=== PATIENT | female | born 1965 | race Caucasian/White ===

== ENCOUNTER → 2020-04-18 12:47 | Outpatient (BNVA) | payer MEDICAID, SELFPAY | PROVIDERS: PCP Family Medicine; Visit Provider Physician Assistant | DX: Z76.89 Persons encountering health services in other specified circumstances (principal) ==

== ENCOUNTER → 2020-07-29 13:50 | Outpatient (BNVA) | payer MEDICAID, SELFPAY | PROVIDERS: PCP Internal Medicine; Visit Provider Nurse Practitioner Family | DX: Z76.89 Persons encountering health services in other specified circumstances (principal) ==

== ENCOUNTER → 2020-09-23 13:20 | Outpatient (REF) | payer MEDICAID, SELFPAY ==
[2020-09-23 14:00] LABS: Hemoglobin 11.7 g/dl (12.0-16.0); Mean Corpuscular HGB Conc 32.5 g/dl (31.0-35.0); Mean Corpuscular Hemoglobin 27.8 pg (27.0-33.0); Mean Corpuscular Volume 85.5 fL (80-98); Mean Platelet Volume 10.6 fL (9.4-12.3); Platelet Count 355 X10*3/uL (160-400); Red Blood Count 4.21 X10*6/uL (4.20-5.50); Red Cell Distribution Width 13.3 % (11.0-16.0)
--- NOTE | 2020-09-23 14:00 | ECG_ITS ---
Hook-up date: 2020-09-23 13:46:00 Duration: 47:59:00 Test Indications: PALPITATIONS Medications: [id number] QRS complexes 38 Ventricular ectopics which represent <1 % of total QRS comp. 205 Supraventricular ectopics which represent <1 % of total QRS comp. * Paced QRS complexs which represent % of total QRS comp. VENTRICULAR ECTOPY 38 Isolated 0 Bigeminal Cycles 0 Couplets 0 Runs 0 Beats in Runs * Beats LONGEST at * BPM at :: -- * Beats FASTEST at * BPM at :: -- SUPRAVENTRICULAR ECTOPY 203 Isolated 1 Couplets 0 Runs 0 Beats in Runs * Beats LONGEST at * BPM at :: -- * Beats FASTEST at * BPM at :: -- HEART RATES 57 MIN at 03:18:54 2020-09-24 89 AVG 148 MAX at 07:05:36 2020-09-24 LONGEST RR 1.1040 secs at 23:08:19 2020-09-24 S-T LEVELS Channel 1 - 128 mm at 13:46:00 2020-09-23 - 128 mm at 13:46:00 2020-09-23 Channel 2 - 128 mm at 13:46:00 2020-09-23 - 128 mm at 13:46:00 2020-09-23 Channel 3 - 128 mm at 03:30:51 -- - 128 mm at 03:30:51 Underlying rhythm is sinus; Rare supraventricular ectopy; No sustained arrhythmias Patient did not report any symptoms in the diary Referred By: Angelo Ahumada Overread By: MORGAN HENRY
[2020-09-23 14:54] LABS: Alanine Aminotransferase 12 U/L (0-31); Albumin Level 4.3 g/dL (3.5-5.0); Alkaline Phosphatase 73 U/L (39-117); Anion Gap 13 (12-20); Aspartate Amino Transferase 18 U/L (5-31); Bilirubin Total 0.2 mg/dL (0.0-1.0); Blood Urea Nitrogen 6 mg/dL (9-16); Calcium 9.4 mg/dL (8.4-10.2); Carbon Dioxide 27 mmol/L (22-29); Chloride 104 mmol/L (96-108); Estimated Glomerular Filt Rate > 60; Glucose Random 74 mg/dL (60-115); Sodium 140 mmol/L (135-145); Total Protein 7.6 g/dL (6.5-8.0)
== END ==
LOC: HO.CARD 13:20
PROVIDERS: Nurse Practitioner Family; Visit Provider Internal Medicine
DX: Z12.11 Encounter for screening for malignant neoplasm of colon (principal); R00.2 Palpitations
CPT/HCPCS: 36415; 80053; 85027; 93225; 93226

== ENCOUNTER 2020-09-29 06:41 | Day surgery (SDC) | payer MEDICAID, SELFPAY ==
--- NOTE | 2020-09-26 09:53 | P.CONAN_ITS ---
Documented by User: Jovanna Vasquez 09/26/20 09:54 HPI - Anesthesia Eval Consult details Narrative: 54yo F for Upper Endoscopy and Colonoscopy [facility] Active Problems Active Problems: All Active Problems (Updated 09/23/20 @ 11:37 by Khalida Bond) History of carpal tunnel release (Acute) Carpal tunnel syndrome on left (Acute) Past Medical History Medical History Anxiety and depression Asthma Back pain Elevated cholesterol GERD (gastroesophageal reflux disease) History of vertigo Palpitations Family History Family History Father No problems noted. Mother No problems noted. Surgical History Surgical History History of appendectomy History of carpal tunnel release History of carpal tunnel surgery of right wrist History of esophagogastroduodenoscopy (EGD) History of throat surgery Social History Social History Alcohol intake: current Alcohol intake frequency: does not drink Smoking Status: Current every day smoker Tobacco Type: Cigarette Cigarettes Per Day: 4 Use of substances other than those prescribed or required for medical reasons: Yes Advance Directives: No Advance Directives Information Provided: Yes Meds Allergies Allergy/AdvReac Type Severity Reaction Status Date / Time Penicillins Allergy Intermediate RASH Verified 09/29/20 07:35 Home Medications Medication Instructions Recorded Confirmed Last Taken Type albuterol sulfate 90 mcg/actuation 2 puff INHALATION Q6H PRN 04/14/20 09/23/20 Unknown History aerosol inhaler cholecalciferol (vitamin D3) 25 25 mcg PO DAILY 04/14/20 09/23/20 Unknown History mcg (1,000 unit) capsule fluoxetine 20 mg capsule 20 mg PO DAILY 04/14/20 09/23/20 Unknown History hydroxyzine HCl 25 mg tablet 25 mg PO BID PRN 04/14/20 09/23/20 Unknown History meclizine 25 mg tablet 25 mg PO DAILY 04/14/20 09/23/20 Unknown History ranitidine HCl 150 mg capsule mg PO 04/14/20 Unknown History benztropine 1 tab PO BEDTIME 09/23/20 09/23/20 Unknown History cyanocobalamin (vitamin B-12) 1 ml IM QMONTH 09/23/20 09/23/20 Unknown History duloxetine [Cymbalta] 1 cap PO QAM 09/23/20 09/23/20 Unknown History fluticasone propionate 1 - 2 spray INTRANASAL DAILY PRN 09/23/20 09/23/20 Unknown History ibuprofen 1 tab PO TID PRN 09/23/20 09/23/20 09/22/20 14:00 History loratadine 1 tab PO DAILY PRN 09/23/20 09/23/20 Unknown History mirtazapine 1 tab PO BEDTIME 09/23/20 09/23/20 Unknown History pantoprazole 1 tab PO DAILY 09/23/20 09/23/20 Unknown History ziprasidone HCl [Geodon] 2 cap PO BEDTIME 09/23/20 09/23/20 Unknown History Exam Exam Date and Time: September 26, 2020 6401 Pertinent Lab Results Pertinent Lab Results: Laboratory Tests 09/23/20 09/23/20 13:20 13:20 WBC 10.0 Hgb 11.7 L Hct 36.0 L Plt Count 355 Sodium 140 Potassium 4.0 Chloride 104 Carbon Dioxide 27 BUN 6 L Creatinine 0.75 Assessment and Plan Assessment Anesthesia Assessment: Chart Reviewed Documented by User: Kimber Burks 09/29/20 07:50 [facility] Past Medical History Medical History Anxiety and depression Asthma Back pain Elevated cholesterol GERD (gastroesophageal reflux disease) History of vertigo Palpitations Family History Family History Father No problems noted. Mother No problems noted. Surgical History Surgical History History of appendectomy History of carpal tunnel release History of carpal tunnel surgery of right wrist History of esophagogastroduodenoscopy (EGD) History of throat surgery Social History Social History Alcohol intake: current Alcohol intake frequency: does not drink Smoking Status: Current every day smoker Tobacco Type: Cigarette Cigarettes Per Day: 4 Use of substances other than those prescribed or required for medical reasons: Yes Advance Directives: No Advance Directives Information Provided: Yes Meds Allergies Allergy/AdvReac Type Severity Reaction Status Date / Time Penicillins Allergy Intermediate RASH Verified 09/29/20 07:35 Home Medications Medication Instructions Recorded Confirmed Last Taken Type albuterol sulfate 90 mcg/actuation 2 puff INHALATION Q6H PRN 04/14/20 09/23/20 Unknown History aerosol inhaler cholecalciferol (vitamin D3) 25 25 mcg PO DAILY 04/14/20 09/23/20 Unknown History mcg (1,000 unit) capsule fluoxetine 20 mg capsule 20 mg PO DAILY 04/14/20 09/23/20 Unknown History hydroxyzine HCl 25 mg tablet 25 mg PO BID PRN 04/14/20 09/23/20 Unknown History meclizine 25 mg tablet 25 mg PO DAILY 04/14/20 09/23/20 Unknown History ranitidine HCl 150 mg capsule mg PO 04/14/20 Unknown History benztropine 1 tab PO BEDTIME 09/23/20 09/23/20 Unknown History cyanocobalamin (vitamin B-12) 1 ml IM QMONTH 09/23/20 09/23/20 Unknown History duloxetine [Cymbalta] 1 cap PO QAM 09/23/20 09/23/20 Unknown History fluticasone propionate 1 - 2 spray INTRANASAL DAILY PRN 09/23/20 09/23/20 Unknown History ibuprofen 1 tab PO TID PRN 09/23/20 09/23/20 09/22/20 14:00 History loratadine 1 tab PO DAILY PRN 09/23/20 09/23/20 Unknown History mirtazapine 1 tab PO BEDTIME 09/23/20 09/23/20 Unknown History pantoprazole 1 tab PO DAILY 09/23/20 09/23/20 Unknown History ziprasidone HCl [Geodon] 2 cap PO BEDTIME 09/23/20 09/23/20 Unknown History Exam Airway Mallampati Class: II TM Dist: >3cm Neck ROM: Full Heart: RRR Lungs: CTA
--- NOTE | 2020-09-29 07:35 | MHC.SHP ---
Pre-Procedural Eval Section B Chief Complaint: screening Details of Present Illness: also uncontrolled GERD so doing EGD as well Relevant Family History (Specify if Yes): No Relevant Social History: Tobacco Use Present Medications: see Short Stay Collaborative assessment Medical History: Significant History (Anxiety and depression Asthma Back pain Elevated cholesterol GERD (gastroesophageal reflux disease) History of vertigo Palpitations) History of Previous Operations: Relevant previous surgery/procedure and date(s) (History of appendectomy History of carpal tunnel release History of carpal tunnel surgery of right wrist History of esophagogastroduodenoscopy (EGD) History of throat surgery) Allergies: Allergies Allergy/AdvReac Type Severity Reaction Status Date / Time Penicillins Allergy Intermediate RASH Verified 07/29/20 13:51 Review of Systems Sugical H&P ROS: Negative: Constitution, Cardiovascular, Respiratory, Neurological, Psychiatric, Hem-Onc, Allergic/Immunologic, Gastrointestinal, Genitourinary, Musculoskeletal, Integumentary, Endocrine and Eyes/Ears/Nose/Throat Exam Surgical H&P Exam: Normal: HEENT, Normal: Heart, Normal: Lungs, Normal: Extremities, Normal: Abdomen, Normal: Skin and Normal: Neurological Plan Diagnosis/Plan: Unchanged I have reviewed the history and physical and performed a pertinent physical examination on my patient. No changes have occurred unless specified. EGD and colonoscopy
[2020-09-29 07:36] VITALS: BMI 27.4
[2020-09-29 07:40] VITALS: BP 139/85; PULSE 85; RESP 18; TEMP 36.7; O2SAT 96
[2020-09-29] MEDS: Lactated Ringers 1,000 ML 100 ML IVCONT (07:51)
--- NOTE | 2020-09-29 08:32 | PM.OP ---
Brief Operative Note Date of Service: 09/29/20 Pre-op diagnosis: GERD and colon screening Post-op diagnosis: same Procedure: see op note Surgeon: Reinaldo Baez MD Anesthesia: MAC Estimated blood loss (mL): 0 Condition: stable Disposition: PACU
--- NOTE | 2020-09-29 08:32 | W.PM.OPN ---
Operative Note Operative Note Date of Service: 09/29/20 Narrative: Operative Information Procedure Description: EGD, Colonoscopy FLEXIBLE TRANSORAL UPPER GASTROINTESTINAL ENDOSCOPY AND COLONOSCOPY PROCEDURE NOTE UPPER ENDOSCOPY Consent: Indications for the procedure and potential complications of bleeding, perforation, reaction to medications and missed diagnosis were discussed with the patient and informed consent was obtained. Instrument: Olympus GIF H 190 J mid size upper endoscope Monitoring: Vital signs and clinical assessment, continuous EKG monitoring, Pulse oximetry, Carbon Dioxide monitoring and blood pressure monitoring were done throughout the procedure. Procedure: The patient was placed in the left lateral decubitis position and pre-procedure medications were administered and a bite block was placed. The endoscope was inserted into the mouth and advanced under direct vision to the third part of duodenum. A careful inspection was made as the upper endoscope was withdrawn including a retroflexed examination of the proximal stomach; Findings and interventions are described below. Findings: Larynx:normal Esophagus: GE junction at 36 cm, diaphragm hiatus at 36 cm, LA grade A esophagitis with suspected short segment Barretts tongue seen, bx taken Stomach: Patchy erythematous mucosa. Biopsies were obtained. Grade 2 flap valve on retroflexed examination of the cardia. Gastric motility seemed reduced Duodenum: Normal bulb and descending duodenum, Intervention: Biopsies as noted above COLONOSCOPY Instrument: Olympus variable stiffness pediatric scope 190L Colonoscopy Monitoring: Vital signs and clinical assessment, continuous EKG monitoring, Pulse oximetry, Carbon Dioxide monitoring and blood pressure monitoring were done throughout the procedure. Colon withdrawal time was 11 minutes. Procedure: The patient was placed in the left lateral decubitis position and pre-procedure medications were administered. After a digital rectal examination of the ano-rectum, the video colonoscope was inserted into the rectum and advanced through the colon to the cecum/TI. The colonoscope was slowly withdrawn in a retrograde panoramic fashion and the colon mucosa was carefully examined including a retroflexed view of the rectum. Findings and interventions are described below. Procedure Difficulty:easy Findings: Terminal Ileum-normal Cecum:normal Ascending Colon: normal Transverse Colon -normal Descending Colon:normal Sigmoid Colon: normal Rectum: Retroflexion with small to medium sized internal hemorrhoids, grade I, 6-8 mm sessile polyp removed with biopsy forceps Anorectum - normal Colon preparation: [place] Bowel Preparation Scale Right colon; 2 Transverse colon: 1 Left colon; 1 (0 = Unprepared colon segment with mucosa not seen due to solid stool that cannot be cleared. 1 = Portion of mucosa of the colon segment seen, but other areas of the colon segment not well seen due to staining, residual stool and/or opaque liquid. 2 = Minor amount of residual staining, small fragments of stool and/or opaque liquid, but mucosa of colon segment seen well. 3 = Entire mucosa of colon segment seen well with no residual staining, small fragments of stool or opaque liquid) Impression and Post Procedure Diagnosis: Endoscopy Findings: gastritis esophagitis Colonoscopy Findings: polyp internal hemorrhoids Plan: Await Pathology results may need repeat EGD in 3-5 yrs if barretts confirmed, review PPI therapy if sx persist then GES due to reduced gastric motility Repeat Colonoscopy in 1-2 years due to prep or earlier if clinically indicated High fiber diet leaflet avoid straining at stool, epsom salts and sitz bath, anusol supps or cream prn Above findings were reviewed with the patient and relevant handouts were provided if indicated.
[2020-09-29 09:02] VITALS: BP 111/71; PULSE 74; RESP 16; TEMP 36.4; O2SAT 97
[2020-09-29 09:18] VITALS: BP 148/75; PULSE 80; RESP 16; O2SAT 96
[2020-09-29 09:23] VITALS: PULSE 75; RESP 18; O2SAT 97
--- NOTE | 2020-09-29 09:54 | HO.POSTANES ---
Post Anesthesia Evaluation Post Anesthesia Evaluation Vital Signs: Vital Signs Temp Pulse Resp BP Pulse Ox 09/29/20 09:23 75 18 97 09/29/20 09:18 80 16 148/75 H 96 09/29/20 09:02 97.5 F 74 16 111/71 97 09/29/20 07:40 98.1 F 85 18 139/85 96 Anesthesia: Monitored Mental Status: Awake Pain Control: Satisfactory Nausea/Vomiting: None Hydration: Adequate Anesthesia-Related Issues: No Anes. Related Issues
== END 2020-09-29 10:13 | disposition home or self-care (01) ==
PROVIDERS: Visit Provider Internal Medicine Gastroenterology
PROC: (CPT 45380; principal; 2020-09-29 08:30)
DX: Z12.11 Encounter for screening for malignant neoplasm of colon (principal); D12.8 Benign neoplasm of rectum; K64.0 First degree hemorrhoids; K29.50 Unspecified chronic gastritis without bleeding; B96.81 Helicobacter pylori [H. pylori] as the cause of diseases classified elsewhere; K21.00 Gastro-esophageal reflux disease with esophagitis, without bleeding; K44.9 Diaphragmatic hernia without obstruction or gangrene; J45.909 Unspecified asthma, uncomplicated; F32.9 Major depressive disorder, single episode, unspecified; R00.2 Palpitations; Z88.0 Allergy status to penicillin; Z79.899 Other long term (current) drug therapy; F17.210 Nicotine dependence, cigarettes, uncomplicated
CPT/HCPCS: 45380; 43239; 88305; 88342

== ENCOUNTER → 2020-10-15 13:02 | Outpatient (BNVA) | payer MEDICAID, SELFPAY | PROVIDERS: Visit Provider Nurse Practitioner Family ==

== ENCOUNTER 2020-10-21 09:14 | Outpatient (REF) | payer MEDICAID, SELFPAY ==
[2020-10-21 11:13] LABS: CDIFF Ag Negative (Negative); CDIFF Internal ctrl Dots and bkg OK (V); CDiff Toxin Negative (Negative)
[2020-10-21 12:12] LABS: Leukocytes Stool Qualitative NEGATIVE (NEGATIVE)
== END 2020-10-21 09:15 | disposition home or self-care (01) ==
LOC: HO.LNP 09:14
PROVIDERS: Visit Provider Nurse Practitioner Family
DX: R19.7 Diarrhea, unspecified (principal)
CPT/HCPCS: 87177; 87209; 87324; 87449; 89055

== ENCOUNTER → 2021-01-07 09:39 | Outpatient (BNVA) | payer MEDICAID, SELFPAY | PROVIDERS: Visit Provider Nurse Practitioner Family ==

== ENCOUNTER 2021-09-06 14:16 | Emergency (ER) | payer MEDICAID, SELFPAY ==
[2021-09-06] VITALS (7 sets, daily range): BP systolic 126–148; BP diastolic 79–94; PULSE 82–98; RESP 14–16; TEMP 36.7; O2SAT 97–99; BMI 27.4
--- NOTE | 2021-09-06 14:26 | PC.NURSE ---
no answer to triage [id number]
[2021-09-06 16:10] LABS: MANUAL DIFF FLAG NO
[2021-09-06 16:12] LABS: Basophils Absolute Auto 0.1 X10*3/uL (0.0-0.2); Basophils Percent Auto 0.9 % (0-2); Eosinophils Absolute Auto 0.3 X10*3/uL (0.0-0.4); Eosinophils Percent Auto 3.3 % (0-4); Hematocrit 37.6 % (37.0-47.0); Hemoglobin 12.5 g/dl (12.0-16.0); Imm Gran Abs Auto 0.03 X10*3/uL (0.00-0.03); Imm Gran Pct Auto 0.3 % (0.0-0.4); Lymphocytes Absolute Auto 3.4 X10*3/uL (1.2-4.9); Mean Corpuscular HGB Conc 33.2 g/dl (31.0-35.0); Mean Corpuscular Hemoglobin 28.3 pg (27.0-33.0); Mean Corpuscular Volume 85.3 fL (80.0-98.0); Mean Platelet Volume 10.2 fL (9.4-12.3); Monocytes Absolute Auto 0.8 X10*3/uL (0.1-1.2); Monocytes Percent Auto 8.1 % (2-11); Neutrophils Absolute Auto 5.3 x10*3/uL (2.0-8.3); Neutrophils Percent Auto 53.4 % (45-73); Platelet Count 328 X10*3/uL (160-400); Red Blood Count 4.41 X10*6/uL (4.20-5.50); White Blood Count 9.9 X10*3/uL (4.8-10.8)
[2021-09-06 16:33] LABS: Alanine Aminotransferase 21 U/L (0-31); Albumin Level 4.2 g/dL (3.5-5.0); Alkaline Phosphatase 72 U/L (39-117); Anion Gap 11 (12-20); Aspartate Amino Transferase 33 U/L (5-31); Bilirubin Total 0.4 mg/dL (0.0-1.0); Blood Urea Nitrogen 5 mg/dL (9-16); Carbon Dioxide 29 mmol/L (22-29); Chloride 102 mmol/L (96-108); Creatinine Clr Calc Pharmacy 80.9; Estimated Glomerular Filt Rate > 60; Glucose Random 106 mg/dL (60-115); Potassium 3.5 mmol/L (3.3-5.1); Sodium 138 mmol/L (135-145); Total Protein 7.7 g/dL (6.5-8.0)
[2021-09-06] MEDS: Acetaminophen 325 MG TABLET 650 MG PO (20:53)
--- NOTE | 2021-09-06 23:33 | ED.HA ---
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 Patient states this morning she began feeling dizzy, as though the room was spinning. Patient states that she has an appointment on the and has taken only Tylenol p.m. for the headache. She denies any alcohol use, is an everyday cigarette smoker, and a frequent smoker of marijuana. 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 Related Data Home Medications Medication Instructions Recorded Confirmed albuterol sulfate 90 mcg/actuation 2 puff INHALATION Q6H PRN 04/14/20 09/23/20 aerosol inhaler (Proventil HFA) cholecalciferol (vitamin D3) 25 25 mcg PO DAILY 04/14/20 09/23/20 mcg (1,000 unit) capsule fluoxetine 20 mg capsule 20 mg PO DAILY 04/14/20 09/23/20 hydroxyzine HCl 25 mg tablet 25 mg PO BID PRN 04/14/20 09/23/20 meclizine 25 mg tablet 25 mg PO DAILY 04/14/20 09/23/20 ranitidine HCl 150 mg capsule mg PO 04/14/20 benztropine 0.5 mg tablet 1 tab PO BEDTIME 09/23/20 09/23/20 cyanocobalamin (vitamin B-12) 1 ml IM QMONTH 09/23/20 09/23/20 1,000 mcg/mL injection solution duloxetine 30 mg capsule,delayed 1 cap PO QAM 09/23/20 09/23/20 release (Cymbalta) fluticasone propionate 50 1 - 2 spray INTRANASAL DAILY PRN 09/23/20 09/23/20 mcg/actuation nasal spray,suspension ibuprofen 800 mg tablet 1 tab PO TID PRN 09/23/20 09/23/20 loratadine 10 mg tablet 1 tab PO DAILY PRN 09/23/20 09/23/20 mirtazapine 30 mg tablet 1 tab PO BEDTIME 09/23/20 09/23/20 pantoprazole 40 mg tablet,delayed 1 tab PO DAILY 09/23/20 09/23/20 release Previous Rx's Medication Instructions Recorded bisacodyl 5 mg tablet,delayed 10 mg PO ONCE 1 Days #2 tab 07/29/20 release (Dulcolax (bisacodyl)) bismuth subsalicylate 262 mg 2 tab PO QID 14 Days #112 tab 10/03/20 chewable tablet metronidazole 500 mg tablet 500 mg PO TID 14 Days #42 tab 10/03/20 pantoprazole 40 mg tablet,delayed 40 mg PO BID 14 Days #28 tab 10/03/20 release lactobacillus combination no.8 3 3,000 mmu cells PO DAILY #30 cap 10/15/20 billion cell capsule (Adult Probiotic) hydrocortisone 2.5 % topical cream 1 appl SD BID-QID PRN #30 g 01/07/21 with perineal applicator (Anusol-HC) sennosides 8.6 mg tablet (Natural 8.6 mg PO BEDTIME PRN #30 tab 01/07/21 Senna Laxative) methylcellulose (laxative) 500 mg 500 mg PO DAILY #30 tab 01/28/21 tablet (Citrucel) Allergies Allergy/AdvReac Type Severity Reaction Status Date / Time Penicillins Allergy Intermediate RASH Verified 01/07/21 09:40 Review of Systems Review of Systems: Pertinent positives and negatives as stated in HPI 10 point review of systems is otherwise negative. [facility] Past Medical History Source: nursing notes reviewed Medical History Anxiety and depression Asthma Back pain Elevated cholesterol GERD (gastroesophageal reflux disease) Helicobacter pylori (H. pylori) History of vertigo Palpitations Tubular adenoma Surgical History H/O colonoscopy History of appendectomy History of carpal tunnel release History of carpal tunnel surgery of right wrist History of esophagogastroduodenoscopy (EGD) History of throat surgery Family History Family History Father No problems noted. Mother No problems noted. Social History Social History Household Members: Spouse Alcohol intake: never Patient Tobacco Use Status: Current everyday Tobacco user Cigarette Packs Per Day: 1 Use of substances other than those prescribed or required for medical reasons: Yes Substance Use Type: Marijuana Substance Use Frequency: Occasionally Last Used Substance: Days (ago) Any prior treatment program specific to substance use: No Advance Directives: No Advance Directives Information Provided: Yes Physical Exam Vital Signs: Vital Signs: Last Vital Signs Temp 98.1 F 09/06/21 22:44 Pulse 87 09/06/21 23:41 Resp 14 09/06/21 23:35 BP 128/92 H 09/06/21 23:41 Pulse Ox 97 09/06/21 22:44 BMI result Body Mass Index 27.4 VITAL SIGNS: Reviewed. GENERAL: Well developed, well nourished, in no acute distress. HEAD: Normocephalic/atraumatic EYES: PERRLA, EOMI OROPHARYNX: no oral lesions noted, posterior pharynx clear LUNGS: Normal breath sounds. No adventitious sounds or accessory muscle use. SpO2<97> CARDIOVASCULAR: Regular rate and rhythm without noted murmurs ABDOMEN: Soft, non-tender, non-distended with bowel sounds. SKIN: Inspection of the skin reveals no rashes NEUROLOGIC: Alert and oriented x 4. Strength and sensation to light touch were grossly intact x 4, no facial asymmetry, no pronator drift, cranial nerves 2-12 grossly intact. Course Course Course Narrative: 55-year-old female with what appears to be chronic migraine and known history of vertigo. Review of all investigations negative for acute findings and patient will be provided with combination analgesics as well as some meclizine. On re-evaluation patient is feeling much better and declined meclizine stating that she is not having any dizziness. She is otherwise discharged home in stable condition with instructions to follow-up as scheduled. MDM - Headache Lab Data Result diagrams: 09/06/21 16:05 09/06/21 16:05 Labs: Lab Results 09/06/21 09/06/21 Range/Units 16:05 16:05 WBC 9.9 (4.8-10.8) X10*3/uL RBC 4.41 (4.20-5.50) X10*6/uL Hgb 12.5 (12.0-16.0) g/dl Hct 37.6 (37.0-47.0) % MCV 85.3 (80.0-98.0) fL MCH 28.3 (27.0-33.0) pg MCHC 33.2 (31.0-35.0) g/dl RDW 13.0 (11.0-16.0) % Plt Count 328 (160-400) X10*3/uL MPV 10.2 (9.4-12.3) fL Immature Gran % (Auto) 0.3 (0.0-0.4) % Neut % (Auto) 53.4 (45-73) % Lymph % (Auto) 34.0 (20-40) % Banks % (Auto) 8.1 (2-11) % Eos % (Auto) 3.3 (0-4) % Baso % (Auto) 0.9 (0-2) % Lymph # (Auto) 3.4 (1.2-4.9) X10*3/uL Banks # (Auto) 0.8 (0.1-1.2) X10*3/uL Eos # (Auto) 0.3 (0.0-0.4) X10*3/uL Baso # (Auto) 0.1 (0.0-0.2) X10*3/uL Abs Immat Gran (auto) 0.03 (0.00-0.03) X10*3/uL Absolute Neuts (auto) 5.3 (2.0-8.3) x10*3/uL Absolute Nucleated RBC 0.000 (0.0-0.012) X10*3/uL Nucleated RBC % (auto) 0.0 (0.0-0.2) /100WBC Sodium 138 (135-145) mmol/L Potassium 3.5 (3.3-5.1) mmol/L Chloride 102 (96-108) mmol/L Carbon Dioxide 29 (22-29) mmol/L Anion Gap 11 L (12-20) BUN 5 L (9-16) mg/dL Creatinine 0.71 (0.5-1.4) mg/dL Estim Creat Clear Calc 80.9 Estimated GFR > 60 Random Glucose 106 (60-115) mg/dL Calcium 10.0 D (8.4-10.2) mg/dL Total Bilirubin 0.4 (0.0-1.0) mg/dL AST 33 H D (5-31) U/L ALT 21 (0-31) U/L Alkaline Phosphatase 72 (39-117) U/L Total Protein 7.7 (6.5-8.0) g/dL Albumin 4.2 (3.5-5.0) g/dL Discharge Plan Discharge Clinical Impression: Headache Patient Disposition: Home, Self-Care Instructions: General Headache (ED) Additional Instructions: 1. Reanudar todos los medicamentos caseros. 2. Tylenol 1000 mg, por v?a oral, cada 6 horas seg?n sea necesario para controlar el dolor. No exceda los 4000 mg dentro de las 24 horas. 3. Ibuprofeno 400 mg, por v?a oral con leche o alimentos, cada 6 horas seg?n sea necesario para controlar el dolor. 4. Realice un seguimiento seg?n lo programado para agustin evaluaci?n adicional de chinyere jamal de ra. Regrese a la sue de emergencias si los s?ntomas empeoran. Prescriptions: No Action bismuth subsalicylate 262 mg tablet,chewable 2 tab PO QID 14 Days Qty: 112 0RF metronidazole 500 mg tablet 500 mg PO TID 14 Days Qty: 42 0RF pantoprazole 40 mg tablet,delayed release (DR/EC) 40 mg PO BID 14 Days Qty: 28 0RF Citrucel 500 mg tablet 500 mg PO DAILY Qty: 30 2RF Rx Instructions: one capsule with full glass of water benztropine 0.5 mg tablet 1 tab PO BEDTIME 0RF ibuprofen 800 mg tablet 1 tab PO TID PRN (Reason: pain) 0RF pantoprazole 40 mg tablet,delayed release (DR/EC) 1 tab PO DAILY 0RF cyanocobalamin (vitamin B-12) 1,000 mcg/mL solution 1 ml IM QMONTH 0RF mirtazapine 30 mg tablet 1 tab PO BEDTIME 0RF fluticasone propionate 50 mcg/actuation spray,suspension 1 - 2 spray intranasal DAILY PRN (Reason: Nasal Congestion) 0RF loratadine 10 mg tablet 1 tab PO DAILY PRN (Reason: allergies) 0RF duloxetine [Cymbalta] 30 mg capsule,delayed release(DR/EC) 1 cap PO QAM 0RF cholecalciferol (vitamin D3) 25 mcg (1,000 unit) capsule 25 mcg PO DAILY 0RF ranitidine HCl 150 mg capsule PO 0RF fluoxetine 20 mg capsule 20 mg PO DAILY 0RF hydroxyzine HCl 25 mg tablet 25 mg PO BID PRN (Reason: Anxiety) 0RF meclizine 25 mg tablet 25 mg PO DAILY 0RF albuterol sulfate [Proventil HFA] 90 mcg/actuation HFA aerosol inhaler 2 puff inhalation Q6H PRN (Reason: Wheezing) 0RF bisacodyl [Dulcolax (bisacodyl)] 5 mg tablet,delayed release (DR/EC) 10 mg PO ONCE 1 Days Qty: 2 0RF Rx Instructions: take 2 tabs at noon the day before your colonoscopy Adult Probiotic 3 billion cell capsule 3,000 mmu cells PO DAILY Qty: 30 2RF Rx Instructions: administer with a meal sennosides [Natural Senna Laxative] 8.6 mg tablet 8.6 mg PO BEDTIME PRN (Reason: constipation) Qty: 30 3RF hydrocortisone [Anusol-HC] 2.5 % cream with perineal applicator 1 appl SD BID-QID PRN (Reason: hemorrhoids) Qty: 30 2RF Print Language: Indian
[2021-09-06] MEDS: Acetaminophen 325 MG TABLET 975 MG PO (23:45)
[2021-09-06] MEDS: Ketorolac Tromethamine 15 MG/ML VIAL IM (23:45)
--- NOTE | 2021-09-07 00:27 | PC.NURSE ---
pt denies dizziness and states she came for a headache, pt declined the meclizine po medication, provider dr nobles made aware.
[2021-09-07 01:46] VITALS: BP 132/74; PULSE 70; RESP 16; TEMP 36.9; O2SAT 97
== END 2021-09-07 01:58 | disposition home or self-care (01) ==
PROVIDERS: Emergency Provider Student in an Organized Health Care Education/Training Program
DX: R51.9 Headache, unspecified (principal); R42 Dizziness and giddiness; F12.90 Cannabis use, unspecified, uncomplicated; Z79.899 Other long term (current) drug therapy
CPT/HCPCS: 36415; 80053; 85025; 96372; 99284; J1885

== ENCOUNTER 2025-01-22 15:00 | Emergency (ER) | payer OTHER, SELFPAY ==
--- NOTE | ~2025-01-22 | XR_ITS ---
EXAMINATION: XR CHEST CLINICAL INFORMATION: Coughing. pneumonia? COMPARISON: 09/14/2018. TECHNIQUE: Frontal view of the chest was obtained. FINDINGS: The cardiac, hilar, and mediastinal contours are normal. The lungs are clear bilaterally. No pneumothorax or effusion. No focal osseous or soft tissue abnormality. There is a similar lucency with surrounding sclerosis in the inferior left glenoid. This is nonspecific but could be degenerative. XR/XR chest 1V IMPRESSION: No active pulmonary disease. Electronically signed by: Curt Llanes MD 01/22/2025 04:32 PM EDT
[2025-01-22 15:27] VITALS: BP 152/81; PULSE 104; RESP 18; TEMP 36.7; O2SAT 95; BMI 27.6
--- NOTE | 2025-01-22 15:30 | ECG_ITS ---
Test Reason : LUNG PAIN Blood Pressure : */* mmHG Vent. Rate : 99 BPM Atrial Rate : 99 BPM P-R Int : 138 ms QRS Dur : 100 ms QT Int : 362 ms P-R-T Axes : 54 5 27 degrees QTcB Int : 464 ms Normal sinus rhythm Incomplete right bundle branch block Minimal voltage criteria for LVH, may be normal variant ( [place] product ) Borderline ECG When compared with ECG of 18-Jun-2011 12:43, MANUAL COMPARISON REQUIRED PREVIOUS ECG IS INCOMPATIBLE Referred By: Jose Gardiner Electronically Signed By: Michael Caraballo
--- NOTE | 2025-01-22 15:32 | ED_ITS ---
HPI - General Adult General Chief complaint: Upper Respiratory Symptoms Stated complaint: pain in lungs diff breathing Time Seen by Provider: 01/22/25 18:45 Source: patient Mode of arrival: ambulatory Limitations: no limitations History of Present Illness ED Provider: HPI narrative: Patient's history of asthma does have a nebulizer at home been coughing and wheezing for last 1 week getting worse does have yellowish discharge from the nose no fever no chills Related Data Home Medications ?Medication ?Instructions ?Recorded ?Confirmed albuterol sulfate 90 mcg/actuation 2 puff inhalation Q 6H PRN Wheezing 04/14/20 09/23/20 aerosol inhaler (Proventil HFA) cholecalciferol (vitamin D3) 25 25 mcg PO DAILY 09/23/20 mcg (1,000 unit) capsule fluoxetine 20 mg capsule 20 mg PO DAILY 04/14/2004/07 hydroxyzine HCl 25 mg tablet 25 mg PO BID PRN Anxiety 04/14/20 09/23/20 meclizine 25 mg tablet 25 mg PO DAILY 04/14/2004/07 ranitidine HCl 150 mg capsule mg PO 04/14/20 benztropine 0.5 mg tablet 1 tab PO BEDTIME 09/23/20 cyanocobalamin (vitamin B-12) 1 ml IM QMONTH 09/23/20 09/23/20 1,000 mcg/mL injection solution duloxetine 30 mg capsule,delayed 1 cap PO QAM 09/23/20 09/23/20 release (Cymbalta) fluticasone propionate 50 1 - 2 spray intranasal DAILY PRN 09/23/20 09/23/20 mcg/actuation nasal Nasal Congestion spray,suspension ibuprofen 800 mg tablet 1 tab PO TID PRN pain 09/23/20 loratadine 10 mg tablet 1 tab PO DAILY PRN allergies 09/23/20 09/23/20 mirtazapine 30 mg tablet 1 tab PO BEDTIME 09/23/20 pantoprazole 40 mg tablet,delayed 1 tab PO DAILY 09/2309/23/20 release Previous Rx's ?Medication ?Instructions ?Recorded bisacodyl 5 mg tablet,delayed 10 mg (2 x 5 mg) PO ONCE 1 day #2 07/29/20 release (Dulcolax (bisacodyl)) tabs bismuth subsalicylate 262 mg 2 tab PO QID 14 days #112 tabs 10/03/20 chewable tablet metronidazole 500 mg tablet 500 mg PO TID 14 days #42 tabs 10/03/20 pantoprazole 40 mg tablet,delayed 40 mg PO BID 14 days #28 tabs 10/03/20 release lactobacillus combination no.8 3 3,000 mmu cells PO DA BRYCE #30 caps 10/15/20 billion cell capsule (Adult Probiotic) hydrocortisone 2.5 % topical cream 1 appl MS BID-QID P RN hemorrhoids 01/07/21 with perineal applicator #30 grams (Anusol-HC) sennosides 8.6 mg tablet (Natural 8.6 mg PO BEDTIME MS N constipation 01/07/21 Senna Laxative) #30 tabs methylcellulose (laxative) 500 mg 500 mg PO DAILY #30 tabs 01/28/21 tablet (Citrucel) azithromycin 250 mg tablet 250 mg PO DAILY 4 days #4 t abs 01/22/25 (Zithromax) doxycycline hyclate 100 mg tablet 100 mg PO BID #20 ta bs 01/22/25 prednisone 20 mg tablet 40 mg (2 x 20 mg) PO DAILY # 10 tabs 01/22/25 Allergies Allergy/AdvReac Type Severity Reaction Status Date / Time Penicillins Allergy Intermediate RASH Verified 01/22/25 15:29 Review of Systems 2 Review of Systems: Yes all other systems are reviewed and are negative [facility] Past Medical History Medical History Helicobacter pylori (H. pylori) Tubular adenoma Palpitations Back pain GERD (gastroesophageal reflux disease) Anxiety and depression History of vertigo Asthma Elevated cholesterol Surgical History H/O colonoscopy History of carpal tunnel surgery of right wrist History of esophagogastroduodenoscopy (EGD) History of throat surgery History of appendectomy History of carpal tunnel release Family History Family History Father No problems noted. Mother No problems noted. Social History Social History Household Members: Spouse Alcohol intake: never Patient Tobacco Use Status: Current everyday Tobacco user Cigarette Packs Per Day: 1 Substance Use Type: Marijuana Advance Directives: No Advance Directives Information Provided: No Do you have a plan to hurt others: No Plan Physical Exam ED Vital Signs: Vital Signs - 24 hr 01/22/25 15:27 01/22/25 18:22 01/22/25 19:18 Temperature 98.0 F 97.4 F 97.4 F Pulse Rate 104 H 98 98 Respiratory Rate 18 16 16 Blood Pressure 152/81 H 128/80 128/80 Pulse Oximetry 95 97 97 Oxygen Delivery Method Room Air Room Air Room Air BMI result Body Mass Index 27.6 Appearance: Alert. Oriented X3. No acute distress. Eyes: No pallor or icterus ENT: Pharynx normal. Oral Mucosa moist Neck: Normal inspection. Neck supple. CVS: Normal heart rate and rhythm. Pulses normal. Respiratory: No respiratory distress. Equal air entry bilateral, bilateral wheezing prolonged expiration occasional crackles Abdomen: Soft and nontender. Bowel sounds are present, no mass palpable, no CVA tenderness Skin: Skin warm and dry. Normal skin color. Normal skin turgor. Extremities: No lower extremity edema. No calf tenderness Neuro: Oriented X 3. No motor deficit. Course Course Course Narrative: RME: 59-year-old female history of bronchial asthma presents to ED for coughing green-yellow nasal discharge the past 3 days with some chest pain. Physical exam positive for expiratory wheezing. Labs EKG chest x-ray ordered. Medications Administered Discontinued Medications Generic Name Dose Route Start Last Admin Trade Name Yina PRN Reason Stop Dose Admin Azithromycin 500 mg 01/22/25 18:59 01/22/25 19:13 Azithromycin 500 Mg Tablet PO 01/22/25 19:00 500 mg ONCE ONE Administration Albuterol Sulfate 2.5 mg/ 0 mg 01/22/25 18:54 01/22/25 19:14 Albuterol/Ipratropium 3 ml INHALE 01/22/25 18:55 Not Given ONCE ONE Doxycycline Monohydrate 100 mg 01/22/25 18:54 01/22/25 19:14 Doxycycline Monohydrate 100 Mg Capsule PO 01/22/25 18:55 100 mg ONCE ONE Administration Potassium Bicarbonate 25 meq 01/22/25 18:54 01/22/25 19:14 Potassium Bicarbonate/Cit Ac 25 Meq Tablet.Eff PO 01/22/25 18:55 25 meq ONCE ONE Administration Prednisone 60 mg 01/22/25 18:54 01/22/25 19:13 Prednisone 20 Mg Tablet PO 01/22/25 18:55 60 mg ONCE ONE Administration Medical Decision Making Medical Decision Making [facility] Narrative: Patient has acute bronchitis with history of asthma will prescribe prednisone does have inhaler nebulizing treatment patient is saturating 97% at room air does not want any nebulizing within the ER will take it at home patient's potassium of 3.1 which was replaced Differential Diagnosis Differential Diagnoses: The differential diagnosis associated with the presentation includes Lab Data [facility] Lab Attestation statement: I reviewed the patient's lab results. 01/22/25 16:04 01/22/25 16:04 Labs: Lab Results 01/22/25 01/22/25 Range/Units 16:04 16:24 WBC 12.7 H (4.8-10.8) X10*3/uL RBC 4.35 (4.20-5.50) X10*6/uL Hgb 12.5 (12.0-16.0) g/dl Hct 36.2 L (37.0-47.0) % MCV 83.2 (80.0-98.0) fL MCH 28.7 (27.0-33.0) pg MCHC 34.5 (31.0-35.0) g/dl RDW 13.4 (11.0-16.0) % Plt Count 320 (160-400) X10*3/uL MPV 10.6 (9.4-12.3) fL Immature Gran % (Auto) 0.4 (0.0-0.4) % Neut % (Auto) 72.2 (45-73) % Lymph % (Auto) 18.9 L (20-40) % [place] % (Auto) 7.0 (2-11) % Eos % (Auto) 0.9 (0-4) % Baso % (Auto) 0.6 (0-2) % Lymph # (Auto) 2.4 (1.2-4.9) X10*3/uL [place] # (Auto) 0.9 (0.1-1.2) X10*3/uL Eos # (Auto) 0.1 (0.0-0.4) X10*3/uL Baso # (Auto) 0.1 (0.0-0.2) X10*3/uL Abs Immat Gran (auto) 0.05 H (0.00-0.03) X10*3/uL Absolute Neuts (auto) 9.2 H (2.0-8.3) x10*3/uL Absolute Nucleated RBC 0.000 (0.0-0.012) X10*3/uL Nucleated RBC % (auto) 0.0 (0.0-0.2) /100WBC PT 12.8 H (10.9-12.4) SEC INR 1.1 (0.9-1.1) APTT 32.4 (26.0-36.8) SEC Sodium 143 (135-145) mmol/L Potassium 3.1 L (3.3-5.1) mmol/L Chloride 105 (96-108) mmol/L Carbon Dioxide 28 (22-29) mmol/L Anion Gap 13 (12-20) BUN 10 (9-16) mg/dL Creatinine 0.74 (0.5-1.4) mg/dL Estim Creat Clear Calc 80.1 Estimated GFR > 60 Random Glucose 109 (60-115) mg/dL Calcium 10.1 (8.4-10.2) mg/dL Total Bilirubin 0.5 (0.0-1.0) mg/dL AST 41 H (5-31) U/L ALT 27 (0-31) U/L Alkaline Phosphatase 90 (39-117) U/L B-Natriuretic Peptide 59 (<100) pg/mL Total Protein 8.2 H (6.5-8.0) g/dL Albumin 4.5 (3.5-5.0) g/dL Influenza Type A (PCR) NEGATIVE (Negative) Influenza Type B (PCR) NEGATIVE (Negative) RSV RNA Qual (PCR) NEGATIVE (Negative) SARS-CoV-2 RNA (RT-PCR) NEGATIVE (Negative) S. pyogenes GrpA BELLA Cancelled Negative Independent Interpretation I performed an independent interpretation of an: Plain X-Ray Interpretation: No acute Discharge Plan Discharge Clinical Impression: Bronchitis Patient Disposition: Home, Self-Care Instructions: Acute Bronchitis (ED) Additional Instructions: Continue to use your nebulizer treat Take antibiotic and prednisone as prescribed Follow up with your PCP if not better Prescriptions: New prednisone 20 mg tablet 40 mg PO DAILY Qty: 10 0RF doxycycline hyclate 100 mg tablet 100 mg PO BID Qty: 20 0RF azithromycin [Zithromax] 250 mg tablet 250 mg PO DAILY 4 Days Qty: 4 0RF Rx Instructions: start on day 2 of therapy No Action bismuth subsalicylate 262 mg tablet,chewable 2 tab PO QID 14 Days Qty: 112 0RF metronidazole 500 mg tablet 500 mg PO TID 14 Days Qty: 42 0RF pantoprazole 40 mg tablet,delayed release (DR/EC) 40 mg PO BID 14 Days Qty: 28 0RF Citrucel 500 mg tablet 500 mg PO DAILY Qty: 30 2RF Rx Instructions: one capsule with full glass of water benztropine 0.5 mg tablet 1 tab PO BEDTIME ibuprofen 800 mg tablet 1 tab PO TID PRN (Reason: pain) pantoprazole 40 mg tablet,delayed release (DR/EC) 1 tab PO DAILY cyanocobalamin (vitamin B-12) 1,000 mcg/mL solution 1 ml IM QMONTH mirtazapine 30 mg tablet 1 tab PO BEDTIME fluticasone propionate 50 mcg/actuation spray,suspension 1 - 2 spray intranasal DAILY PRN (Reason: Nasal Congestion) loratadine 10 mg tablet 1 tab PO DAILY PRN (Reason: allergies) duloxetine [Cymbalta] 30 mg capsule,delayed release(DR/EC) 1 cap PO QAM cholecalciferol (vitamin D3) 25 mcg (1,000 unit) capsule 25 mcg PO DAILY ranitidine HCl 150 mg capsule PO fluoxetine 20 mg capsule 20 mg PO DAILY hydroxyzine HCl 25 mg tablet 25 mg PO BID PRN (Reason: Anxiety) meclizine 25 mg tablet 25 mg PO DAILY albuterol sulfate [Proventil HFA] 90 mcg/actuation HFA aerosol inhaler 2 puff inhalation Q6H PRN (Reason: Wheezing) bisacodyl [Dulcolax (bisacodyl)] 5 mg tablet,delayed release (DR/EC) 10 mg PO ONCE 1 Days Qty: 2 0RF Rx Instructions: take 2 tabs at noon the day before your colonoscopy Adult Probiotic 3 billion cell capsule 3,000 mmu cells PO DAILY Qty: 30 2RF Rx Instructions: administer with a meal sennosides [Natural Senna Laxative] 8.6 mg tablet 8.6 mg PO BEDTIME PRN (Reason: constipation) Qty: 30 3RF hydrocortisone [Anusol-HC] 2.5 % cream with perineal applicator 1 appl MS BID-QID PRN (Reason: hemorrhoids) Qty: 30 2RF Interventions: ED Discharge Assessment Last Done: 01/22/25 19:18 Discharge Date/Time: 01/22/25 19:19 Print Language: Chinese
[2025-01-22 16:09] LABS: MANUAL DIFF FLAG NO
[2025-01-22 16:10] LABS: Hematocrit 36.2 % (37.0-47.0); Hemoglobin 12.5 g/dl (12.0-16.0); Imm Gran Abs Auto 0.05 X10*3/uL (0.00-0.03); Imm Gran Pct Auto 0.4 % (0.0-0.4); Lymphocytes Absolute Auto 2.4 X10*3/uL (1.2-4.9); Mean Corpuscular HGB Conc 34.5 g/dl (31.0-35.0); Mean Corpuscular Hemoglobin 28.7 pg (27.0-33.0); Mean Corpuscular Volume 83.2 fL (80.0-98.0); NRBC Abs Auto 0.000 X10*3/uL (0.0-0.012); NRBC Pct Auto 0.0 /100WBC (0.0-0.2); Platelet Count 320 X10*3/uL (160-400); Red Blood Count 4.35 X10*6/uL (4.20-5.50); White Blood Count 12.7 X10*3/uL (4.8-10.8)
[2025-01-22 16:16] LABS: INTERNATIONAL NORM RATIO 1.1 (0.9-1.1); Prothrombin Time 12.8 SEC (10.9-12.4)
[2025-01-22 16:18] LABS: Partial Thromboplastin Time 32.4 SEC (26.0-36.8)
[2025-01-22 16:28] LABS: Alanine Aminotransferase 27 U/L (0-31); Albumin Level 4.5 g/dL (3.5-5.0); Alkaline Phosphatase 90 U/L (39-117); Anion Gap 13 (12-20); Aspartate Amino Transferase 41 U/L (5-31); Blood Urea Nitrogen 10 mg/dL (9-16); Calcium 10.1 mg/dL (8.4-10.2); Carbon Dioxide 28 mmol/L (22-29); Chloride 105 mmol/L (96-108); Creatinine Clr Calc Pharmacy 80.1; Estimated Glomerular Filt Rate > 60; Potassium 3.1 mmol/L (3.3-5.1); Sodium 143 mmol/L (135-145); Total Protein 8.2 g/dL (6.5-8.0)
[2025-01-22 16:32] LABS: B Type Natriuretic Peptide 59 pg/mL (<100)
[2025-01-22 16:42] LABS: IDNOW Serial# 55D5AD1C; Strep A Nucleic Acid Negative (Negative)
[2025-01-22 16:48] LABS: Resp Syncy Virus RNA Qual PCR NEGATIVE (Negative); SARS COV2 PCR INHOUSE NEGATIVE (Negative)
[2025-01-22 18:22] VITALS: BP 128/80; PULSE 98; RESP 16; TEMP 36.3; O2SAT 97
[2025-01-22] MEDS: Potassium Bicarbonate/Cit AC 25 MEQ TABLET.EFF PO (19:14)
[2025-01-22 19:18] VITALS: BP 128/80; PULSE 98; RESP 16; TEMP 36.3; O2SAT 97
== END 2025-01-22 19:19 | disposition home or self-care (01) ==
PROVIDERS: Physician Assistant; Emergency Provider Internal Medicine
DX: J40 Bronchitis, not specified as acute or chronic (principal); Z03.818 Encounter for observation for suspected exposure to other biological agents ruled out; R05.9 Cough, unspecified; R07.9 Chest pain, unspecified; F17.210 Nicotine dependence, cigarettes, uncomplicated
CPT/HCPCS: 36415; 71045; 80053; 83880; 85025; 85610; 85730; 87637; 87651; 93005; 99283

== ENCOUNTER → 2025-01-22 15:30 | Outpatient (BNV) | payer MEDICAID, SELFPAY | PROVIDERS: Visit Provider Radiology Diagnostic Radiology | DX: R05.1 Acute cough (principal) | CPT/HCPCS: 71045 ==

== ENCOUNTER → 2025-01-22 15:30 | Outpatient (BNV) | payer OTHER, SELFPAY | PROVIDERS: Emergency Provider Internal Medicine; Visit Provider Internal Medicine Cardiovascular Disease | DX: I45.10 Unspecified right bundle-branch block (principal) | CPT/HCPCS: 93010 ==

== ENCOUNTER 2025-01-31 10:10 | Emergency (ER) | payer OTHER, SELFPAY ==
--- NOTE | 2025-01-31 | ECG_ITS ---
Test Reason : DIZZINESS Blood Pressure : */* mmHG Vent. Rate : 81 BPM Atrial Rate : 81 BPM P-R Int : 140 ms QRS Dur : 100 ms QT Int : 362 ms P-R-T Axes : 28 -8 15 degrees QTcB Int : 420 ms Normal sinus rhythm Incomplete right bundle branch block Minimal voltage criteria for LVH, may be normal variant ( Xavi product ) Borderline ECG When compared with ECG of 22-Jan-2025 15:52, No significant change was found Referred By: Generic ED Physician Electronically Signed By: MORGAN HENRY
--- NOTE | ~2025-01-31 | CT_ITS ---
CLINICAL HISTORY: throbbing unilateral headache W dizziness CT Head without contrast. CT angiography head and neck with contrast. 3D Postprocessing. Comparison: None provided Findings: HEAD CT: No intra-axial mass, midline shift, hydrocephalus, or acute hemorrhage. No significant atrophy-like change or white matter disease. There is mucosal thickening of the bilateral maxillary sinus. The orbits are unremarkable. No skull fracture. HEAD AND NECK CTA: Examination is limited by severe motion artifact. No stenoses of the bilateral carotid artery to the level of skull base. The origin of the vertebral arteries can not be evaluated due to artifact. The cavernous segment of internal artery and basilar artery can not be evaluated. Limited evaluation of the intracranial arteries demonstrates no aneurysm, dissection, or occlusion. No abnormal intracranial enhancement. The visualized thyroid gland is unremarkable. No cervical mass or fluid collection. Lung apices clear. No acute fracture. IMPRESSION: 1. Unremarkable head CT. 2. Very limited CTA examination due to severe motion artifact. No intracranial aneurysm is seen based on limited examination. This document has been electronically signed by: Sriram Jon MD on 01/31/2025 20:12:40
[2025-01-31 10:23] VITALS: BP 126/87; PULSE 87; RESP 18; TEMP 37.1; O2SAT 96; BMI 28.0
[2025-01-31 10:41] LABS: MANUAL DIFF FLAG NO
[2025-01-31 10:43] LABS: Hematocrit 34.4 % (37.0-47.0); Hemoglobin 11.5 g/dl (12.0-16.0); Imm Gran Abs Auto 0.04 X10*3/uL (0.00-0.03); Imm Gran Pct Auto 0.5 % (0.0-0.4); Lymphocytes Absolute Auto 3.5 X10*3/uL (1.2-4.9); Mean Corpuscular HGB Conc 33.4 g/dl (31.0-35.0); Mean Corpuscular Hemoglobin 28.0 pg (27.0-33.0); Mean Corpuscular Volume 83.9 fL (80.0-98.0); NRBC Abs Auto 0.000 X10*3/uL (0.0-0.012); NRBC Pct Auto 0.0 /100WBC (0.0-0.2); Platelet Count 311 X10*3/uL (160-400); Red Blood Count 4.10 X10*6/uL (4.20-5.50); White Blood Count 8.8 X10*3/uL (4.8-10.8)
--- NOTE | 2025-01-31 10:58 | ED.GENADULT ---
HPI - General Adult General Chief complaint: Dizziness Stated complaint: headache dizzy Time Seen by Provider: 01/31/25 10:55 Source: patient Mode of arrival: ambulatory History of Present Illness ED Provider: Hector Caldwell PA-C HPI narrative: 59-year-old female with history of H pylori, GERD, anxiety, depression, asthma, HLD, presents to the ED today due to 3 days of throbbing temporal headache, and dizziness. Patient states she woke up from sleep to use the bathroom and noticed that she was dizzy, with persistent temporal throbbing headache. Patient states she has history of migraines, this headache feels same except for associated dizziness. Patient has been taking her meclizine prescription without relief. Patient reports yesterday she was in the heat all day on the bus trying to get her medications and had increased episode of dizziness and feeling as if she was going to pass out, with persistent throbbing headache. Patient reports she has not been drinking much water, and is frequently outside in the heat. Patient denies any recent trauma injury fall or head strike. Denies chest pain, shortness of breath, visual changes, nausea, vomiting MD complaint: headache, dizziness Related Data Home Medications ?Medication ?Instructions ?Recorded ?Confirmed albuterol sulfate 90 mcg/actuation 2 puff inhalation Q6H PRN Wheezing 04/14/20 09/23/20 aerosol inhaler (Proventil HFA) cholecalciferol (vitamin D3) 25 25 mcg PO DAILY 04/14/20 09/23/20 mcg (1,000 unit) capsule fluoxetine 20 mg capsule 20 mg PO DAILY 04/14/20 09/23/20 hydroxyzine HCl 25 mg tablet 25 mg PO BID PRN Anxiety 04/14/20 09/23/20 meclizine 25 mg tablet 25 mg PO DAILY 04/14/20 09/23/20 ranitidine HCl 150 mg capsule mg PO 04/14/20 benztropine 0.5 mg tablet 1 tab PO BEDTIME 09/23/20 09/23/20 cyanocobalamin (vitamin B-12) 1 ml IM QMONTH 09/23/20 09/23/20 1,000 mcg/mL injection solution duloxetine 30 mg capsule,delayed 1 cap PO QAM 09/23/20 09/23/20 release (Cymbalta) fluticasone propionate 50 1 - 2 spray intranasal DAILY PRN 09/23/20 09/23/20 mcg/actuation nasal Nasal Congestion spray,suspension ibuprofen 800 mg tablet 1 tab PO TID PRN pain 09/23/20 09/23/20 loratadine 10 mg tablet 1 tab PO DAILY PRN allergies 09/23/20 09/23/20 mirtazapine 30 mg tablet 1 tab PO BEDTIME 09/23/20 09/23/20 pantoprazole 40 mg tablet,delayed 1 tab PO DAILY 09/23/20 09/23/20 release Previous Rx's ?Medication ?Instructions ?Recorded bisacodyl 5 mg tablet,delayed 10 mg (2 x 5 mg) PO ONCE 1 day #2 07/29/20 release (Dulcolax (bisacodyl)) tabs bismuth subsalicylate 262 mg 2 tab PO QID 14 days #112 tabs 10/03/20 chewable tablet metronidazole 500 mg tablet 500 mg PO TID 14 days #42 tabs 10/03/20 pantoprazole 40 mg tablet,delayed 40 mg PO BID 14 days #28 tabs 10/03/20 release lactobacillus combination no.8 3 3,000 mmu cells PO DAILY #30 caps 10/15/20 billion cell capsule (Adult Probiotic) hydrocortisone 2.5 % topical cream 1 appl [place] BID-QID PRN hemorrhoids 01/07/21 with perineal applicator #30 grams (Anusol-HC) sennosides 8.6 mg tablet (Natural 8.6 mg PO BEDTIME PRN constipation 01/07/21 Senna Laxative) #30 tabs methylcellulose (laxative) 500 mg 500 mg PO DAILY #30 tabs 01/28/21 tablet (Citrucel) azithromycin 250 mg tablet 250 mg PO DAILY 4 days #4 tabs 01/22/25 (Zithromax) doxycycline hyclate 100 mg tablet 100 mg PO BID #20 tabs 01/22/25 prednisone 20 mg tablet 40 mg (2 x 20 mg) PO DAILY #10 tabs 01/22/25 Allergies Allergy/AdvReac Type Severity Reaction Status Date / Time Penicillins Allergy Intermediate RASH Verified 01/31/25 10:27 Review of Systems Review of Systems: CONST: Negative for fever, body aches and chills. HENT: Negative for neck pain/stiffness, congestion, sore throat, swelling. POS throbbing temporal headache EYES: Negative for discharge/pain or vision changes. RESP: Negative for cough/hemoptysis and shortness of breath. CV: Negative chest pain, difficulty breathing, palpitations. ABD: Negative pain, nausea, vomiting. : Negative increase frequency, dysuria, blood in urine or stool. MUSC: Negative for muscle aches, edema. SKIN: Negative rash, lesions/sores. NEURO: Negative weakness. POS dizziness, lightheadedness [facility] Past Medical History Attestation statement: The following information was validated with the patient. Source: old records reviewed and nursing notes reviewed Medical History Helicobacter pylori (H. pylori) Tubular adenoma Palpitations Back pain GERD (gastroesophageal reflux disease) Anxiety and depression History of vertigo Asthma Elevated cholesterol Surgical History H/O colonoscopy History of carpal tunnel surgery of right wrist History of esophagogastroduodenoscopy (EGD) History of throat surgery History of appendectomy History of carpal tunnel release Family History Family History Father No problems noted. Mother No problems noted. Social History Social History Household Members: Spouse Alcohol intake: former Patient Tobacco Use Status: Current everyday Tobacco user Cigarette Packs Per Day: 1 Smoked in Last 30 Days: Yes Use of substances other than those prescribed or required for medical reasons: No Substance Use Type: Marijuana Advance Directives: No Advance Directives Information Provided: Yes Physical Exam ED Vital Signs: Vital Signs - 24 hr 01/31/25 10:23 01/31/25 16:54 Temperature 98.8 F 98.0 F Pulse Rate 87 72 Respiratory Rate 18 16 Blood Pressure 126/87 130/77 Pulse Oximetry 96 98 Oxygen Delivery Method Room Air Room Air BMI result Body Mass Index 28.0 GENERAL APPEARANCE: ?AxOx4, generally well-appearing, no acute distress. HEENT: ?NC, AT. dry oral MM. EOMI, clear conjunctiva, oropharynx clear. NECK: ?Supple without lymphadenopathy.? No stiffness or restricted ROM. HEART:? Normal rate and regular rhythm, normal S1/S1, no m/r/g LUNGS:? CTAB, moving air well. No crackles or wheezes are heard. ABDOMEN: ?Soft, nontender, nondistended with good bowel sounds heard. BACK: No CVAT, no obvious deformity. EXTREMITIES: ?Without cyanosis, clubbing or edema. NEUROLOGICAL: ?Grossly nonfocal. Alert and oriented, moving all 4 extremities. Observed to ambulate with normal gait. Skin: ?Warm and dry without any rash. Medications Administered Discontinued Medications Generic Name Dose Route Start Last Admin Trade Name Freq PRN Reason Stop Dose Admin Diphenhydramine HCl 25 mg 01/31/25 16:38 01/31/25 16:51 Diphenhydramine Hcl 50 Mg/Ml Vial IVPUSH 01/31/25 16:39 25 mg ONCE ONE Administration Lactated Ringer's 1,000 mls @ 999 mls/hr 01/31/25 13:20 01/31/25 15:37 Lr IV 01/31/25 14:20 Infused .Q1H1M ONE Infusion Potassium Chloride 10 meq in 100 mls @ 100 mls/hr 01/31/25 13:30 01/31/25 16:11 Potassium Chloride/H20 IV 01/31/25 15:29 Infused Q1H NEIDA Infusion Acetaminophen 1,000 mg in 100 mls @ 400 mls/hr 01/31/25 14:22 01/31/25 15:36 Ofirmev IV 01/31/25 14:36 Infused ONCE ONE Infusion Iohexol 70 ml 01/31/25 18:28 01/31/25 18:28 Iohexol 350 Mg/Ml 100 Ml Infus..Btl IV 01/31/25 18:29 70 ml ONCE ONE Administration Ketorolac Tromethamine 15 mg 01/31/25 13:20 01/31/25 13:45 Ketorolac Tromethamine 15 Mg/Ml Vial IVPUSH 01/31/25 13:21 15 mg ONCE ONE Administration Metoclopramide HCl 10 mg 01/31/25 16:38 01/31/25 16:51 Metoclopramide Hcl 10 Mg/2 Ml Vial IVPUSH 01/31/25 16:39 10 mg ONCE ONE Administration Potassium Chloride 20 meq 01/31/25 13:20 07/17/25 13:48 Potassium Chloride Er 20 Meq Tab.Er.Prt PO 01/31/25 13:21 20 meq ONCE ONE Administration Medical Decision Making Medical Decision Making MDM Narrative: 59-year-old female with history of H pylori, GERD, anxiety, depression, asthma, HLD, presents to the ED today due to 3 days of throbbing temporal headache, and dizziness. Patient states she woke up from sleep to use the bathroom and noticed that she was dizzy, with persistent temporal throbbing headache. Patient states she has history of migraines, this headache feels same except for associated dizziness. Patient has been taking her meclizine prescription without relief. Patient reports yesterday she was in the heat all day on the bus trying to get her medications and had increased episode of dizziness and feeling as if she was going to pass out, with persistent throbbing headache. Patient reports she has not been drinking much water, and is frequently outside in the heat. Patient denies any recent trauma injury fall or head strike. VSS, nontoxic appearing, no acute distress, normotensive. On physical exam head is normocephalic, no bony abnormalities, no rash visualized, no nodular swelling, no scalp tenderness. Lungs clear to auscultation bilaterally, cardiac exam shows regular rate and rhythm without murmurs/rubs/gallops, abdomen soft nondistended no tenderness to palpation. EKG without ST elevation/depression, incomplete RBBB-upon review of prior EKGs no changes seen. Labs reveal hypokalemia at 3.0, repleting with 20meq oral and 10meq IV. Gave 15mg IV toradol, IV fluids. Patient still with headache, will give IV tylenol. Patient eating and drinking in department. Awaiting ESR/CRP. No scalp tenderness/palpable masses, visual changes, no jaw pain,- less likely Giant cell arteritis. Course 14:45- Patient receiving fluids, IV potassium. Patient is currently eating lunch try and drinking water and mata katerine. Patient is still complaining of headache, we will give IV Tylenol and reassess once she has gotten fluids and IV potassium. 16:41- patient states headache has improved minimally with IV fluids, IV Toradol, IV Tylenol. We will give 25 mg Benadryl with 10 mg Reglan. Will obtain CTA head/neck to evaluate unilateral throbbing headache 20:37- patient's headache has improved after medicating with Benadryl and Reglan. CTA limited due to motion artifact however does not reveal aneurysm or ICH. Patient states she has a PCP, encouraged patient to follow up with this provider for management of migraine. Counseled patient on strict return precautions including nausea, vomiting, worsening headache, visual changes, or any new/worsening/concerning symptoms. Encouraged patient to stay hydrated while she is outside in the heat, and if she does not lot like water she can stay hydrated with sports drinks like Gatorade and Powerade. Differential Diagnosis Differential Diagnoses: The differential diagnosis associated with the presentation includes Migraine Electrolyte abnormality Dehydration Giant cell arteritis Lab Data MDM Lab Attestation statement: I reviewed the patient's lab results. 01/31/25 10:37 01/31/25 10:37 Labs: Lab Results 01/31/25 Range/Units 10:37 WBC 8.8 (4.8-10.8) X10*3/uL RBC 4.10 L (4.20-5.50) X10*6/uL Hgb 11.5 L (12.0-16.0) g/dl Hct 34.4 L (37.0-47.0) % MCV 83.9 (80.0-98.0) fL MCH 28.0 (27.0-33.0) pg MCHC 33.4 (31.0-35.0) g/dl RDW 14.0 (11.0-16.0) % Plt Count 311 (160-400) X10*3/uL MPV 10.2 (9.4-12.3) fL Immature Gran % (Auto) 0.5 H (0.0-0.4) % Neut % (Auto) 48.6 (45-73) % Lymph % (Auto) 39.4 (20-40) % Scurry % (Auto) 6.6 (2-11) % Eos % (Auto) 3.7 (0-4) % Baso % (Auto) 1.2 (0-2) % Lymph # (Auto) 3.5 (1.2-4.9) X10*3/uL Scurry # (Auto) 0.6 (0.1-1.2) X10*3/uL Eos # (Auto) 0.3 (0.0-0.4) X10*3/uL Baso # (Auto) 0.1 (0.0-0.2) X10*3/uL Abs Immat Gran (auto) 0.04 H (0.00-0.03) X10*3/uL Absolute Neuts (auto) 4.3 (2.0-8.3) x10*3/uL Absolute Nucleated RBC 0.000 (0.0-0.012) X10*3/uL Nucleated RBC % (auto) 0.0 (0.0-0.2) /100WBC ESR 14 (0-20) MM/HR Sodium 140 (135-145) mmol/L Potassium 3.0 L (3.3-5.1) mmol/L Chloride 104 (96-108) mmol/L Carbon Dioxide 28 (22-29) mmol/L Anion Gap 11 L (12-20) BUN 11 (9-16) mg/dL Creatinine 0.64 (0.5-1.4) mg/dL Estim Creat Clear Calc 93.2 Estimated GFR > 60 Random Glucose 93 (60-115) mg/dL Calcium 8.9 D (8.4-10.2) mg/dL Magnesium 1.8 (1.6-2.6) mg/dL Total Bilirubin 0.7 (0.0-1.0) mg/dL AST 32 H (5-31) U/L ALT 24 (0-31) U/L Alkaline Phosphatase 70 (39-117) U/L C-Reactive Protein 0.21 (< or = 0.50) mg/dL Total Protein 6.7 (6.5-8.0) g/dL Albumin 3.8 (3.5-5.0) g/dL Independent Interpretation I performed an independent interpretation of an: EKG and CT Scan Interpretation: I independently interpreted the EKG No ST elevation/depression, normal sinus rhythm Vent. Rate : 81 BPM Atrial Rate : 81 BPM P-R Int : 140 ms QRS Dur : 100 ms QT Int : 362 ms P-R-T Axes : 28 -8 15 degrees QTcB Int : 420 ms Normal sinus rhythm Incomplete right bundle branch block Minimal voltage criteria for LVH, may be normal variant ( Xavi product ) Borderline ECG When compared with ECG of 08-Chet-2025 15:52, No significant change was found I personally interpreted the CTA scan of head and neck which was not reveal aneurysm or ICH. I agree with the radiologist's findings Radiology Impression Discussion of test interpretation with radiology: I have reviewed the radiologist's reading. Radiologist Impression: CTA head/neck Findings: HEAD CT: No intra-axial mass, midline shift, hydrocephalus, or acute hemorrhage. No significant atrophy-like change or white matter disease. There is mucosal thickening of the bilateral maxillary sinus. The orbits are unremarkable. No skull fracture. HEAD AND NECK CTA: Examination is limited by severe motion artifact. No stenoses of the bilateral carotid artery to the level of skull base. The origin of the vertebral arteries can not be evaluated due to artifact. The cavernous segment of internal artery and basilar artery can not be evaluated. Limited evaluation of the intracranial arteries demonstrates no aneurysm, dissection, or occlusion. No abnormal intracranial enhancement. The visualized thyroid gland is unremarkable. No cervical mass or fluid collection. Lung apices clear. No acute fracture. IMPRESSION: 1. Unremarkable head CT. 2. Very limited CTA examination due to severe motion artifact. No intracranial aneurysm is seen based on limited examination. This document has been electronically signed by: Sriram Jon MD on 01/31/2025 20:12:40 Dictated By: Sriram Jon MD Signed By: <Electronically signed by Sriram Jon MD in [place]> 01/31/252012 External Record Review External record reviewed: Inpatient record, Office record and Outpatient record Chronic Conditions Patient?s care impacted by: Other (Asthma, GERD, History of vertigo, migraine ) Discharge Plan Discharge Clinical Impression: Migraine Patient Disposition: Home, Self-Care Instructions: Migraine Headache (ED) Additional Instructions: You were evaluated in the ED today due to 3 days of headache with dizziness. Your lab work revealed that you had low potassium (3.0) which is an essential electrolyte in your body. You were given IV fluids, IV potassium (20meq), and oral potassium (20meq) for repletion. All other lab work was within normal range. Had a CT angiogram of your head and neck, this imaging did not show any aneurysm or intracranial bleed. At this time I suspect your headache and dizziness is due to dehydration, and low potassium. You stated that you been outside in the heat, when you were outside please see hydrated with water and/or sports drinks/Pedialyte to replete essential sodium and electrolytes that you lose while sweating. Please follow up with your PCP to ensure improvement. Please return to the emergency department if you experience fevers over 100.4?, worsening headache, nausea, vomiting, visual changes such as double vision or blurry vision, chest pain, shortness of breath or any new/concerning/worsening symptoms Prescriptions: No Action bismuth subsalicylate 262 mg tablet,chewable 2 tab PO QID 14 Days Qty: 112 0RF metronidazole 500 mg tablet 500 mg PO TID 14 Days Qty: 42 0RF pantoprazole 40 mg tablet,delayed release (DR/EC) 40 mg PO BID 14 Days Qty: 28 0RF Citrucel 500 mg tablet 500 mg PO DAILY Qty: 30 2RF Rx Instructions: one capsule with full glass of water benztropine 0.5 mg tablet 1 tab PO BEDTIME ibuprofen 800 mg tablet 1 tab PO TID PRN (Reason: pain) pantoprazole 40 mg tablet,delayed release (DR/EC) 1 tab PO DAILY cyanocobalamin (vitamin B-12) 1,000 mcg/mL solution 1 ml IM QMONTH mirtazapine 30 mg tablet 1 tab PO BEDTIME fluticasone propionate 50 mcg/actuation spray,suspension 1 - 2 spray intranasal DAILY PRN (Reason: Nasal Congestion) loratadine 10 mg tablet 1 tab PO DAILY PRN (Reason: allergies) duloxetine [Cymbalta] 30 mg capsule,delayed release(DR/EC) 1 cap PO QAM prednisone 20 mg tablet 40 mg PO DAILY Qty: 10 0RF doxycycline hyclate 100 mg tablet 100 mg PO BID Qty: 20 0RF azithromycin [Zithromax] 250 mg tablet 250 mg PO DAILY 4 Days Qty: 4 0RF Rx Instructions: start on day 2 of therapy cholecalciferol (vitamin D3) 25 mcg (1,000 unit) capsule 25 mcg PO DAILY ranitidine HCl 150 mg capsule PO fluoxetine 20 mg capsule 20 mg PO DAILY hydroxyzine HCl 25 mg tablet 25 mg PO BID PRN (Reason: Anxiety) meclizine 25 mg tablet 25 mg PO DAILY albuterol sulfate [Proventil HFA] 90 mcg/actuation HFA aerosol inhaler 2 puff inhalation Q6H PRN (Reason: Wheezing) bisacodyl [Dulcolax (bisacodyl)] 5 mg tablet,delayed release (DR/EC) 10 mg PO ONCE 1 Days Qty: 2 0RF Rx Instructions: take 2 tabs at noon the day before your colonoscopy Adult Probiotic 3 billion cell capsule 3,000 mmu cells PO DAILY Qty: 30 2RF Rx Instructions: administer with a meal sennosides [Natural Senna Laxative] 8.6 mg tablet 8.6 mg PO BEDTIME PRN (Reason: constipation) Qty: 30 3RF hydrocortisone [Anusol-HC] 2.5 % cream with perineal applicator 1 appl [place] BID-QID PRN (Reason: hemorrhoids) Qty: 30 2RF Stand Alone Forms: Work/School Release Print Language: Croatian
[2025-01-31 11:06] LABS: Alanine Aminotransferase 24 U/L (0-31); Albumin Level 3.8 g/dL (3.5-5.0); Alkaline Phosphatase 70 U/L (39-117); Anion Gap 11 (12-20); Aspartate Amino Transferase 32 U/L (5-31); Blood Urea Nitrogen 11 mg/dL (9-16); Calcium 8.9 mg/dL (8.4-10.2); Carbon Dioxide 28 mmol/L (22-29); Chloride 104 mmol/L (96-108); Creatinine Clr Calc Pharmacy 93.2; Estimated Glomerular Filt Rate > 60; Potassium 3.0 mmol/L (3.3-5.1); Sodium 140 mmol/L (135-145); Total Protein 6.7 g/dL (6.5-8.0)
--- OUTSIDE RECORDS SUMMARY | 2025-01-31 13:33 | XMS_ITS | Encounter Summary ---
Author Organization [employer] Address [address] [place] [address] Care Team Providers Care Heel Shaper Name Role Phone Unavailable Primary Care Provider Unavailabl e Encounter Details Date Type Department Care Team (Latest Contact Info) Description 07/30/2019 Abstract [facility] CONVERSIONS Dental, Provider, DDS Social History Tobacco Use Types Packs/Day Years Used Date Smoking Tobacco: Never Assessed Comments Unknown Sex and Gender Information Value Date Recorded Sex Assigned at Female 05/17/2022 10:21 AM EDT Legal Sex Female 10:21 AM EDT Gender Identity Female 05/17/2022 10:21 AM EDT Sexual Orientation Lesbian or Singleton 05/17/2022 10 :21 AM EDT documented as of this encounter Plan of Treatment Not on file documented as of this encounter Visit Diagnoses Not on filedocumented in this encounter
--- OUTSIDE RECORDS SUMMARY | 2025-01-31 13:33 | XMS_ITS | Clinical Summary ---
Author Organization [facility] it Address [address] [place] [address] Care Team Providers Care Senior Medical Director Name Role Phone Unavailable Primary Care Provider Unavailabl e Social History Tobacco Use Types Packs/Day Years Used Date Smoking Tobacco: Never Assessed Comments Unknown Sex and Gender Information Value Date Recorded Sex Assigned at Not on file Legal Sex Female 10:18 AM EST Gender Identity Not on file Sexual Orientation Not on file Plan of Treatment Health Maintenance Due Date Last Done Comments DTaP,Tdap,and Td Vaccines (1 - Tdap) 1984 Hepatitis B Vaccines (1 of 3 - 19+ 3-dose series) 1984 Cervical Cancer Screening: P ap Smear 1986 Pneumococcal Vaccine: 50+ Ye ars (1 of 1 - PCV) 11/07/2015 Zoster Vaccines (1 of 2) 11/07/2015 Colorectal Cancer Screening: Colonoscopy 06/15/2022 Depression Screening 06/15/2022 HIV Screening 06/15/2022 Hepatitis C Screening 06/15/2022 Social Influencers of Health Screening 06/15/2022 Breast Cancer Screening 08/14/2022 08/14/2020 COVID-19 Vaccine ( - 2023-2 5 season) 2024 Influenza Vaccine (#1) 2025 RSV Immunization Adult Patie nts (1 - 1-dose 75+ series) 2040 HIB Vaccines Aged Out No longer eligi ble based on patient's age to complete this topic HPV Vaccines Aged Out No longer eligi ble based on patient's age to complete this topic Hepatitis A Vaccines Aged Out No long er eligible based on patient's age to complete this topic IPV Vaccines Aged Out No longer eligi ble based on patient's age to complete this topic MMR Vaccines Aged Out No longer eligi ble based on patient's age to complete this topic Meningococcal ACWY Vaccine Aged Out N o longer eligible based on patient's age to complete this topic Meningococcal B Vaccine Aged Out No l onger eligible based on patient's age to complete this topic RSV Immunization Patients Un layne 20 months Aged Out No longer eligible b ased on patient's age to complete this topic Varicella Vaccines Aged Out No longer eligible based on patient's age to complete this topic Procedures Procedure Name Priority Date/Time Associated Diagnosis Comments [facility] Routine 08/14/2020 10:31 AM EST Encounter for screening mammogram for malignant neoplasm of breast from Last 3 Months or Most Recently Relevant to Health Maintenance Results * [facility] (08/14/2020 10:31 AM EST) Anatomical Region Laterality Modality Mammography 08/12/2020 2:42 PM EST Narrative 08/14/2020 10:31 AM EST [facility] Diagnostic Imaging Department [address] [place], [place] [id number] Patient: JAQUI MARSHALL /Age/Sex: 1965 - 54 - F Unit#: [id number] [facility]Ordering Site: [facility] Ordering Physician: GEOFF BOWERS MD [facility] Screening Digital - 08/12/20 - 1518 EXAM: [facility] Screening Digital EXAM DATE AND TIME: 08/12/2020 3:19 PM HISTORY: Screening. COMPARISON: 02/20/19, 07/28/16, 07/31/14 [place] TECHNIQUE: CC and MLO views of both breasts were obtained using full field digital mammography. Bilateral digital breast tomosynthesis was performed in the MLO projection. Computer aided detection with the [employer] 7.2-H was employed. TISSUE DENSITY: c. The breasts are heterogeneously dense, which may obscure small masses. FINDINGS: A new 1 cm round mass is seen in the anterior right breast, directly behind the medial aspect of the nipple, without associated microcalcifications. Targeted ultrasound is recommended for further assessment. No dominant mass or asymmetry is seen in the left breast. No grouped microcalcifications or areas of architectural distortion are seen in either breast. The skin and vascularity are unremarkable. IMPRESSION: 1. Right breast mass, for which targeted ultrasound is recommended. The patient will be called back. 2. Stable mammographic appearance of the left breast. No evidence of malignancy is seen. BI-RADS: Category 0: Incomplete - Need Additional Imaging Evaluation RECOMMENDATION(S): 1: Ultrasound follow-up RIGHT [id number], [id number], [id number] Dictating Physician: REID HI MD Electronically Signed by: REID HI MD Dic Date/Time: 08/14/20 1029 Sign date/Time: 08/14/20 1031 Procedure Note Reid Hi MD - 07/06/2022 [facility] Diagnostic Imaging Department [address] [place] [id number] Patient: JAQUI MARSHALL./Age/Sex: 1965 - 54 - F Unit#: [id number] Location/Status: [facility]/REG CLI Mnemonic/Ordering Site: [facility] Ordering Physician: GEOFF BOWERS MD [facility] Screening Digital - 08/12/20 - 1518 EXAM: [facility] Screening Digital EXAM DATE AND TIME: 08/12/2020 3:19 PM HISTORY: Screening. COMPARISON: 02/20/19, 07/28/16, 07/31/14 [place] TECHNIQUE: CC and MLO views of both breasts were obtained using fullfield digital mammography. Bilateral digital breast tomosynthesis was performedin the MLO projection. Computer aided detection with the [employer] 7.2-Gobyas employed. TISSUE DENSITY: c. The breasts are heterogeneously dense, which mayobscure small masses. FINDINGS: A new 1 cm round mass is seen in the anterior right breast, directlybehind the medial aspect of the nipple, without associated microcalcifications.Targeted ultrasound is recommended for further assessment. No dominant mass or asymmetry is seen in the left breast. No grouped microcalcifications or areas of architectural distortion are seen ineither breast. The skin and vascularity are unremarkable. IMPRESSION: 1. Right breast mass, for which targeted ultrasound is recommended. Thepatient will be called back. 2. Stable mammographic appearance of the left breast. No evidence ofmalignancy is seen. BI-RADS: Category 0: Incomplete - Need Additional Imaging Evaluation RECOMMENDATION(S): 1: Ultrasound follow-up RIGHT [id number], [id number] 3340F, 7025F Dictating Physician: REID HI MD Electronically Signed by: REID HI MD Dic Date/Time: 08/14/20 1029 Sign date/Time: 08/14/20 1031 us Geoff Bowers MD IMG BI PROCEDURES Final R esult from Last 3 Months or Most Recently Relevant to Health Maintenance
--- OUTSIDE RECORDS SUMMARY | 2025-01-31 13:33 | XMS_ITS | Data Portability ---
Author Organization [facility], [facility] Address [address] [place] [phone] Assessment Encounter Date Assessment Date Assessment LastModified by Organization Details LastModified Time 07/20/2024 07/20/2024 Follow up Marisol's edema. Voice normal today. Laryngoscopy reveals mild edema. Recommend continued attempts at smoking cessation. Follow up in [address] Wu, sooner with new throat symptoms. Discuss night sweats with PCP. [email or web address] Not available 07/20/2024 13:38:19 Plan of Treatment Reminders Order Date Submit Date Provider Last Modified By Organization Details Last Modified Time Details Appointments FOLLOW UP 15 2024 01:00P M OSCAR WU MD Not available Not available Not available Establish ed 15 2024 11:15A M OSCAR WU MD Not available Not available Not available Lab None recorded. Referral None recorded. Procedures None recorded. Surgeries None recorded. Imaging None recorded. Medication Orders None recorded. Patient TargetsNo targets recorded. Patient InstructionsNo instructions recorded. Reason for Referral None Reported. Results Created Date Observation Date Name Description Value Unit Range Abnormal Flag Note LastModifiedBy Organization Detail LastModifiedTime 03/07/20 24 03/04/2023 imagi ng/di agnos tic resul t No observ ation record ed. [email or web address] Not Available 04:24:31 Result Notes None recorded. 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; Note: Date Diagnosed : 03/30/2023 11:35 AM (J38.1) Not Available [facility] 4 03:20:13 Tobacco dependenc e caused by cigarette s 72153722786 143510 Active 2022 Nicotine dependenc e, cigarette s, uncomplic ated; Note: Changed from Z72.0 to F17.210 (06/28/20 6:05 AM) , Date Diagnosed : 03/30/2023 11:36 AM (Z72.0) Not Available [facility] 4 03:20:13 Mass of neck 869550903 Active 2022 Localized swelling, mass and lump, neck; Note: Date Diagnosed : 03/30/2023 11:33 AM (R22.1) Not Available [facility] 4 03:20:14 Neck swelling 486276120 Active 2022 Localized swelling, mass and lump, neck; Note: Date Diagnosed : 03/30/2023 11:33 AM (R22.1) Not Available [facility] 4 03:20:14 Postopera tive care Active 2022 Encounter for other specified surgical aftercare ; Note: Date Diagnosed : 3 6:54 AM (Z48.89) Not Available [facility] 4 03:20:13 Chronic hoarsenes s 79392749863 05 Active 2023 OSCAR WU MD [address] [facility] [address], [place], [address] , [place] - [facility] 4 07:15:08 Feeling of lump in throat 733543046 Active 2024 ANA MAHONEY PA-C [address] [place] [address],[place] [address], [place], [address] , [place] - [facility] 5 13:38:27 Problem Notes None recorded. Procedures Surgical History Date Name Laterality Status Provider Name and Address Organization Details Recorded Time 07/20/19 25 Fiberoptic Laryngoscopy (Comprehensive) completed ANA MAHONEY PA-C [address] [facility],[place] [address], [place], [address], [facility] 07/20/2024 13:36:55 02/03/20 24 Fiberoptic Laryngoscopy (Comprehensive) completed OSCAR WU MD [address] [facility],[address], [address], [facility] 02/03/2024 10:59:54 06/21/20 23 Laryngoscopy with biopsy completed OSCAR WU MD [address] [facility] [address], [place], [address], [facility] 02/06/2024 07:13:52 Imaging Results None recorded. Procedure Notes None recorded. Medical Equipment None Reported. Allergies No known drug allergies Medications Name Sig Start Date Stop Date Status Note LastModified by Organization Details LastModified Time atorvasta tin 40 mg tablet TAKE 1 TABLET BY MOUTH EVERY DAY active Not Available Not Available No t Available doxycycli ne hyclate 100 mg capsule 02/02 completed Not Available Not Available Not Available atorvasta tin 20 mg tablet active Medicati on ID: [id number] B rand Name: atorvast atin Sen d Method: E-Prescr ibed Sub s Allowed: subs OK Medic ationGen ericName : atorvast atin Not Available Not Available Not Available benztropi ne 0.5 mg tablet TAKE ONE TABLET EVERY MORNING active Not Available Not Available No t Available nicotine 14 mg/24 hr daily transderm al patch 02/02 completed Medicati on ID: [id number] B rand Name: nicotine Send Method: E-Prescr ibed Sub s Allowed: subs OK Medic ationGen ericName : nicotine Medicat ion ID: [id number] B rand Name: nicotine Send Method: E-Prescr ibed Sub s Allowed: subs OK Medic ationGen ericName : nicotine Not Available Not Available Not Available albuterol sulfate 2.5 mg/3 mL (0.083 %) solution for nebulizat ion INHALE ONE AMPULE USING A NEBULIZE R EVERY 6 HOURS NEEDED FOR WHEEZING OR SHORTNES S OF BREATH active Not Available Not Available No t Available prednison e 20 mg tablet TAKE 1 TABLET BY MOUTH DAILY,X7 DAYS, WITH FOOD OR MILK active Not Available Not Available No t Available omeprazol e 40 mg capsule,d elayed release TAKE ONE CAPSULE EVERY MORNING 30 MINUTES BEFORE BREAKFAS T active Not Available Not Available No t Available acetamino phen ER 650 mg tablet,ex tended release TAKE 2 TABLETS BY MOUTH EVERY 8 HOURS NEEDED FOR PAIN active Not Available Not Available No t Available ziprasido ne 20 mg capsule TAKE ONE CAPSULE TWICE DAILY WITH MEALS active Not Available Not Available No t Available famotidin e 20 mg tablet active Medicati on ID: [id number] B rand Name: famotidi ne Send Method: E-Prescr ibed Sub s Allowed: subs OK Medic ationGen ericName : famotidi ne Not Available Not Available Not Available meclizine 25 mg tablet TAKE 1 TABLET BY MOUTH THREE TIMES A DAY NEEDED FOR DIZZINES S active Not Available Not Available No t Available cephalexi n 500 mg capsule TAKE 1 CAPSULE BY MOUTH EVERY 12 HOURS FOR 7 DAYS active Not Available Not Available No t Available lisinopri l 10 mg tablet TAKE 1 TABLET BY MOUTH EVERY DAY active Not Available Not Available No t Available losartan 25 mg tablet TAKE 1 TABLET BY MOUTH EVERY DAY active Not Available Not Available No t Available BD Luer-Concetta Syringe 3 mL 25 gauge x 1 Use monthly as directed for Vitamin B injectio ns active Not Available Not Available No t Available gabapenti n 300 mg capsule TAKE ONE CAPSULE EVERY DAY active Not Available Not Available No t Available lisinopri l 5 mg tablet active Medicati on ID: [id number] B rand Name: lisinopr il Send Method: E-Prescr ibed Sub s Allowed: subs OK Medic ationGen ericName : lisinopr il Not Available Not Available Not Available ziprasido ne 40 mg capsule active Medicati on ID: [id number] B rand Name: ziprasid one HCl Send Method: E-Prescr ibed Sub s Allowed: subs OK Medic ationGen ericName : ziprasid one HCl Not Available Not Available Not Available mirtazapi ne 15 mg tablet TAKE ONE TABLET EVERY NIGHT AT BEDTIME NEEDED active Not Available Not Available No t Available ibuprofen 600 mg tablet TAKE ONE TABLET EVERY DAY WITH FOOD OR MILK NEEDED FOR HEADACHE active Not Available Not Available No t Available methylpre dnisolone 4 mg tablets in a dose pack 02/02 completed Not Available Not Available Not Available fluticaso ne propionat e 50 mcg/actua tion nasal spray,chinyere pension active Not Available Not Available Not Available Ventolin HFA 90 mcg/actua tion aerosol inhaler INHALE TWO PUFFS BY MOUTH EVERY 4 HOURS NEEDED FOR WHEEZING OR SHORTNES S OF BREATH active Not Available Not Available No t Available duloxetin e 30 mg capsule,d elayed release 02/02 completed Medicati on ID: [id number] B rand Name: duloxeti ne Send Method: E-Prescr ibed Sub s Allowed: subs OK Medic ationGen ericName : duloxeti ne Medic ation ID: [id number] B rand Name: duloxeti ne Send Method: E-Prescr ibed Sub s Allowed: subs OK Medic ationGen ericName : duloxeti ne Not Available Not Available Not Available duloxetin e 60 mg capsule,d elayed release TAKE ONE CAPSULE EVERY MORNING active Not Available Not Available No t Available nicotine (polacril ex) 2 mg buccal mini lozenge 02/02 completed Not Available Not Available Not Available Vitals Date Recorded Body height Body mass index (BMI) Body weight Provider Name and Address Organization Details Last Updated DateTime 02/03/2024 157.48 cm 31.3 kg/m2 93868.3 g Brittney Vides [facility] 02/03/2024 10:38:15 Social History None recorded. Functional Status None recorded. Mental Status None recorded. Family History Nothing Reported. Medical History No medical history recorded. Gynecological HistoryNo gynecological history recorded. Obstetrics History GPAL:G 0 P 0 0 0 0 Past Encounters Encounter ID Performer Location Encounter Start Date Encounter Closed Date Diagnosis/Indication Diagnosis SNOMED-CT Code Diagnosis ICD10 Code Diagnosis Note [id number] OSCAR WU MD [facility] [address] [address] 02/03/2024 10:22:57 02/03/2024 13:29:47 Chronic hoarseness 4763486401 105 R49.0 58-year-ol d female presents today for reassessme nt of her vocal cords after DL with biopsy in June 2023. There was no malignancy .There is some mild Marisol's edema on exam. I have recommende d another exam in 6 months to ensure no worsening and if exam is stable 1 year after that. I did encourage her to continue to cut back and quit smoking. Tobacco user 591862477 Z 72.0 [id number] ANA MAHONEY PA-C [facility] [address] [address] 07/20/2024 12:42:20 07/20/2024 13:29:23 Dysphonia 80598429 R49.0 Tobacco de pendence caused by cigarettes 5557764651 4064892 F17.210 Feeling of lump in throat 298393051 R09.89 Health Concerns Section Related Observation LastModified by Organization Detai ls LastModified Time None Recorded Concern Status LastModified by Organization Details LastModified Time None Recorded Advance Directives Directive None Recorded Payers Insurance Date Sequence Insurance Name Policy Number Policy Bridges Covered Member ID Bridges Member ID Guarantor Name 12/26/[address] [place] [address] (MEDICAID HMO) [id number] Jaqui Auquillar [id number] Jaqui Auquillar Notes Date Note Type Note Provider Name and Address Organization Details Recorded Time 02/03/2024 text/html No changes in health since her last visit. She is smoking 3 to 4 cigarettes/day. OSCAR WU MD [address] [place] [address], [phone], [facility] - [facility] 02/06/2024 07:16:57 07/20/2024 text/html 58 year old kristin ruiz presents for re-evaluation of mild Marisol's edema on exam in January 2024. Had previously undergone DL with biopsy in June 2023. There was no malignancy. Sometimes her throat gets dry. She feels like there is something in the throat. She denies dysphagia. She has no hemoptysis, fevers, nor significant unintentional weight loss, maybe 5 pounds. Does have some new night sweats, started two weeks ago. She reports she is now smoking a pack of cigarettes every three days, which is a great reduction. She does not drink alcohol. OSCAR WU MD [address] [place] [address], [place], [address], [place] - [facility] 07/21/2024 08:04:41 OBGyn Episode No OBEpisode recorded.
[2025-01-31] MEDS: Lactated Ringers 1,000 ML 999 ML IV (13:48)
[2025-01-31] MEDS: Potassium Chloride ER 20 MEQ TAB.ER.PRT PO (13:48)
[2025-01-31] MEDS: Potassium Chloride/H20 10 MEQ/100 ML PIGGYBACK 100 MEQ IV ×2 (14:02→15:23)
[2025-01-31 16:54] VITALS: BP 130/77; PULSE 72; RESP 16; TEMP 36.7; O2SAT 98
[2025-01-31 16:58] LABS: Magnesium 1.8 mg/dL (1.6-2.6)
[2025-01-31] MEDS: iohexoL 350 MG/ML 100 ML INFUS..BTL 70 ML IV (18:28)
[2025-01-31 20:57] VITALS: BP 137/86; PULSE 68; RESP 18; TEMP 36.9; O2SAT 97
[2025-01-31 21:03] VITALS: BP 137/86; PULSE 68; RESP 18; TEMP 36.9; O2SAT 97
== END 2025-01-31 21:04 | disposition home or self-care (01) ==
PROVIDERS: Emergency Provider Emergency Medicine; PCP Internal Medicine
DX: G43.909 Migraine, unspecified, not intractable, without status migrainosus (principal); R42 Dizziness and giddiness; I45.10 Unspecified right bundle-branch block; R11.0 Nausea; Z79.899 Other long term (current) drug therapy
CPT/HCPCS: 36415; 70496; 70498; 80053; 83735; 85025; 85652; 86140; 93005; 96361; 96365; 96375; 99285; J0131; J1200; J1885; J2765; J3480; J7120; Q9967

== ENCOUNTER → 2025-01-31 10:30 | Outpatient (BNV) | payer OTHER, SELFPAY | PROVIDERS: Emergency Provider Emergency Medicine; PCP Internal Medicine; Visit Provider Internal Medicine | DX: I45.10 Unspecified right bundle-branch block (principal) | CPT/HCPCS: 93010 ==

== ENCOUNTER → 2025-01-31 16:48 | Outpatient (BNV) | payer OTHER, SELFPAY | PROVIDERS: Emergency Provider Emergency Medicine; PCP Internal Medicine; Visit Provider Nuclear Medicine | DX: R51.9 Headache, unspecified (principal) | CPT/HCPCS: 70496; 70498 ==

== ENCOUNTER 2025-03-09 15:50 | Emergency (ER) | payer OTHER, SELFPAY ==
--- NOTE | ~2025-03-09 | XR_ITS ---
CLINICAL HISTORY: fall, pain 3 views right ankle Comparison: None Findings: No fractures, subluxations or dislocations. Ankle mortise intact. Normal plafond. No osteochondral lesions. Calcaneus and subtalar joint intact. No significant arthritic change. Posterior and plantar calcaneal enthesophytes Soft tissue swelling laterally Calcific tendinopathy Achilles tendon No radiopaque foreign body. Impression: 1. Soft tissue swelling lateral malleolus. No acute fractures. Ankle mortise intact. This document has been electronically signed by: Gabo Oglesby MD on 03/09/2025 17:31:54
--- NOTE | ~2025-03-09 | XR_ITS ---
CLINICAL HISTORY: fall, pain 3 views left foot Comparison: None Findings: No fractures, subluxations or dislocations. No periostitis or bony destruction. Joint intervals are preserved. No marginal erosions or overhanging osteophytes. Calcaneus and subtalar joint intact. Calcific tendinopathy Achilles tendon. Plantar calcaneal enthesophyte. Normal bone mineralization and soft tissues. Normal pre-Achilles fat pad. No radiopaque foreign body. Impression: 1. No acute fractures or malalignment This document has been electronically signed by: Gabo Oglesby MD on 03/09/2025 17:33:09
--- NOTE | ~2025-03-09 | XR_ITS ---
CLINICAL HISTORY: fall, paulette 3 views left ankle Comparison: None Findings: No fractures, subluxations or dislocations. Ankle mortise intact. Normal plafond. No osteochondral lesions. Calcaneus and subtalar joint intact. Calcific tendinopathy achilles tendon Posterior and plantar calcaneal enthesophytes Normal bone mineralization and soft tissues. Normal pre-Achilles fat pad. No radiopaque foreign body. Impression: 1. No acute fractures or malalignment This document has been electronically signed by: Gabo Oglesby MD on 03/09/2025 17:46:01
[2025-03-09 15:55] VITALS: BP 122/70; BP 98/63; PULSE 78; RESP 18; TEMP 37.3; O2SAT 96; O2SAT 97; BMI 27.5
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
[2025-03-09 18:15] VITALS: BP 98/63; PULSE 78; RESP 18; TEMP 37.3; O2SAT 97
== END 2025-03-09 18:16 | disposition home or self-care (01) ==
PROVIDERS: Emergency Provider Emergency Medicine; PCP Nurse Practitioner Pediatrics
DX: M25.571 Pain in right ankle and joints of right foot (principal); M25.572 Pain in left ankle and joints of left foot
CPT/HCPCS: 73610; 73630; 96372; 99284; J1885

== ENCOUNTER → 2025-03-09 16:25 | Outpatient (BNV) | payer OTHER, SELFPAY | PROVIDERS: Emergency Provider Emergency Medicine; PCP Nurse Practitioner Pediatrics; Visit Provider Radiology Diagnostic Radiology | DX: R22.41 Localized swelling, mass and lump, right lower limb (principal); M65.272 Calcific tendinitis, left ankle and foot | CPT/HCPCS: 73610; 73630 ==

== ENCOUNTER 2025-05-20 16:57 | Emergency (ER) | payer OTHER, SELFPAY ==
--- NOTE | ~2025-05-20 | XR_ITS ---
CLINICAL HISTORY: rib pain after fall 2 view chest x-ray. Comparison: 01/22/2025 Findings: No consolidation or effusion. Cardiac and mediastinal contours are stable. Bones unremarkable. Impression: 1. No acute pulmonary disease. This document has been electronically signed by: Fermin Dent MD on 05/20/2025 19:58:49
[2025-05-20 17:28] VITALS: BP 101/63; PULSE 78; RESP 16; TEMP 36.8; O2SAT 96
[2025-05-20 17:29] VITALS: BP 106/70; PULSE 86; O2SAT 96
[2025-05-20 17:31] VITALS: BP 110/72; PULSE 82; RESP 16; TEMP 36.7; O2SAT 96; BMI 25.7
--- OUTSIDE RECORDS SUMMARY | 2025-05-20 17:50 | XMS_ITS | Encounter Summary ---
Author Organization [employer] Address [address] [place] [address] Care Team Providers Care Cold Rolling Supervisor Name Role Phone Unavailable Primary Care Provider Unavailabl e Encounter Details Date Type Department Care Team (Latest Contact Info) Description 07/30/2019 Abstract [facility] CONVERSIONS Dental, Provider, DDS Social History Tobacco [...]
--- OUTSIDE RECORDS SUMMARY | 2025-05-20 17:50 | XMS_ITS | Encounter Summary ---
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
--- OUTSIDE RECORDS SUMMARY | 2025-05-20 17:50 | XMS_ITS | Clinical Summary ---
Author Organization [facility] ity Address [address] [place] [address] Care Team Providers Care Estate Planning Paralegal Name Role Phone Unavailable Primary Care Provider Unavailabl e Social History Tobacco Use Types Packs/Day Years Used Date Smoking Tobacco: Never Assessed Comments Unknown Sex and Gender Information Value Date Recorded Sex Assigned at Not on file Legal Sex Female 10:18 AM EST Gender Identity Not on file Sexual Orientation Not on file Plan of Treatment Health Maintenance Due Date Last Done Comments Colorectal Cancer Screening: Colonoscopy 1965 DTaP,Tdap,and Td Vaccines (1 - Tdap) 1984 Hepatitis B Vaccines (1 of 3 - 19+ 3-dose series) 1984 Cervical Cancer Screening: P ap Smear 1986 Pneumococcal Vaccine: 50+ Ye ars (1 of 1 - PCV) 11/07/2015 Zoster Vaccines (1 of 2) 11/07/2015 HIV Screening 06/15/2022 Hepatitis C Screening 06/15/2022 Social Influencers of Health Screening 06/15/2022 Breast Cancer Screening 08/14/2022 08/14/2020 Depression Screening 07/18/2024 COVID-19 Vaccine (1 - 2023-2 5 season) 2025 Influenza Vaccine (#1) 2025 RSV Immunization Adult [...] Procedure Name Priority Date/Time Associated Diagnosis Comments [facility] SCREENING DIGITAL Routine 08/14/2020 10:31 AM EST Encounter for screening mammogram for malignant neoplasm of breast from Last 3 Months or Most Recently Relevant to Health Maintenance Results * [facility] SCREENING DIGITAL (08/14/2020 10:31 AM EST) Anatomical Region Laterality Modality Mammography 08/12/2020 2:42 PM EST Narrative 08/14/2020 10:[address] [facility] Diagnostic Imaging Department [address] [place], [place] [id number] Patient: JAQUI MARSHALL /Age/Sex: 1965 - 54 - F Unit#: [id number] [facility]/Status: [facility] Mnemonic/Ordering Site: [facility] Ordering Physician: GEOFF BOWERS MD [facility] Screening Digital - 08/12/20 - 1518 EXAM: [facility] Screening Digital EXAM DATE AND TIME: 08/12/2020 3:19 PM HISTORY: Screening. COMPARISON: 02/20/19, 07/28/16, 07/31/14 [place], [place] TECHNIQUE: CC and MLO views of both breasts were obtained using full field digital mammography. Bilateral digital breast tomosynthesis was performed in the MLO projection. Computer aided detection with the [employer] 7.2-H was employed. TISSUE DENSITY: c. The [...] Imaging Evaluation RECOMMENDATION(S): 1: Ultrasound follow-up RIGHT [id number], [id number] 3340F, 7025F Dictating Physician: REID HI MD Electronically Signed by: REID HI MD Dic Date/Time: 08/14/20 1029 Sign date/Time: 08/14/20 1031 Procedure Note Reid Hi MD - 07/06/2022 [facility] Diagnostic Imaging Department [address] [place] [id number] Patient: JAQUI MARSHALL./Age/Sex: 1965 - 54 - F Unit#: [id number] Location/Status: [facility] CLI Mnemonic/Ordering Site: [facility] Ordering Physician: GEOFF BOWERS MD [facility] Screening Digital - 08/12/20 - 1518 EXAM: [facility] Screening Digital EXAM DATE AND TIME: 08/12/2020 3:19 PM HISTORY: Screening. COMPARISON: 02/20/19, 07/28/16, 07/31/14 [place], [place] TECHNIQUE: CC and MLO views of both breasts were obtained using fullfield digital mammography. Bilateral digital breast tomosynthesis was performedin the MLO projection. Computer aided detection with the Primeloop.2-SportsBoardas employed. TISSUE DENSITY: c. The breasts are [...] Imaging Evaluation RECOMMENDATION(S): 1: Ultrasound follow-up RIGHT [id number], [id number] 3340F, 7025F Dictating Physician: REID HI MD Electronically Signed by: REID HI MD Dic Date/Time: 08/14/20 1029 Sign date/Time: 08/14/20 1031 us Geoff Bowers MD IMG BI PROCEDURES Final R esult from Last 3 Months or Most Recently Relevant to Health Maintenance
--- OUTSIDE RECORDS SUMMARY | 2025-05-20 17:50 | XMS_ITS | Clinical Summary ---
Author Organization [employer] Address [address] [place] [address] [address] [place] [address] Care Team Providers Care First Assistant Name Role Phone Unavailable Primary Care Provider Unavailabl e Medications albuterol (2.5 MG/3ML) 0.083% nebulizer solutionIndicatio ns:Mild intermittent asthma without complication INHALE ONE AMPULE USING A NEBULIZER FOUR TIMES DAILY NEEDED 90 mL 1 2 Active Immunizations Immunization Administration Dates Next Due Influenza Injectable Quadriv alant Preservative Free IIV4 MDCK 05/23/2023 Influenza injectable quadriv alent IIV4 with preservative 07/24/2019,05/02/2018,05/27/2016,04/23 Influenza injectable quadriv alent preservative free 06/05/2020,05/04/2019,04/02/2017 Influenza, IIV3, injectable 07/01/2022,1 08/05/2019,07/24/2019,05/04,05/02/2018,04/02/2017,05/27/2016 ,04/23/2015,07/16/2014 Moderna Covid-19 Vaccine 12+ 11/17/2020,10/21/19 21 Pneumococcal Polysaccharide PPSV23 05/27/2016 Tdap 01/18/2020,07/16/2014 Zoster, Recombinant 12/05/2020,06/05/2020 Social History Tobacco Use Types Packs/Day Years Used Date Smoking Tobacco: Never Assessed Comments Unknown Sex and Gender Information Value Date Recorded Sex Assigned at Female 05/17/2022 10:21 AM EDT Legal Sex Female 10:21 AM EDT Gender Identity Female 05/17/2022 10:21 AM EDT Sexual Orientation Lesbian or Singleton 05/17/2022 10 :21 AM EDT Last Filed Vital Signs Vital Sign Reading Time Taken Comments Blood Pressure 105/58 02/16/2021 12:08 AM EDT Pulse 107 02/16/2021 12:08 AM EDT Temperature - - Respiratory Rate - - Oxygen Saturation - - Inhaled Oxygen Concentration - - Weight 77.6 kg (171 lb) 02/16/2021 12:08 AM EDT Height 160.3 cm (5' 3.12 ) 02/16/2021 12:08 AM E DT Body Mass Index 30.18 02/16/2021 12:08 AM EDT Plan of Treatment Health Maintenance Due Date Last Done Comments CT Colonography 1965 Colonoscopy 1965 Colorectal Cancer Screening 1965 Depression Screening 1965 FIT DNA/Cologuard 1965 FIT 1965 FOBT 1965 HIV Screening 1965 Lipid Panel 1965 SDOH Screening 1965 Sigmoidoscopy 1965 Disability Screening 1965 Alcohol/Substance Use Screening 1977 Tobacco Screening 1977 Hepatitis C Screening 11/07/1983 Hepatitis B Vaccines (1 of 3 - 19+ 3-dose series) 1984 Pap Smear 1986 Cervical Cancer Screening 11/07/1995 HPV/Cotest 11/07/1995 Pneumococcal Vaccine: 50+ Years (2 of 2 - PCV) 05/27/2017 05/27/2016 Dental Prophylaxis 04/06/2018 10/03/2017, 0 07/24/2015, 07/23/2013, Additional history exists Dental Oral Exam 12/02/2020 06/03/2020, , 09/29/2018, Additional history exists Mammogram 02/21/2021 02/21/2019 Dental X-Ray: Bitewings 06/04/2021 06/03/20 20, 03/22/2019, 02/23/2019, Additional history exists Dental X-Ray: Full Mouth 09/30/2021 09/29/2018 COVID-19 Vaccine ( season) 2025 11/17/2020, 10/20/2020 Influenza Vaccine (#1) 2025 3, 07/01/2022, 06/05/2020, Additional history exists DTaP/Tdap/Td Vaccines (3 - Td or Tdap) 01/17/2030 01/18/2020, 07/16/2014 RSV Patients and Patients Aged 60 years or older (1 - 1-dose 75+ series) 2040 Zoster Vaccines Completed 12/05/2020, 06/05/2020 HIB Vaccines Aged Out No longer eligi [...] patient's age to complete this topic Meningococcal Vaccine Aged Out No michelle brenda eligible based on patient's age to complete this topic RSV under 20 months Aged Out No longe r eligible based on patient's age to complete this topic Rotavirus Vaccines Aged Out No longer eligible based on patient's age to complete this topic Procedures Procedure Name Priority Date/Time Associated Diagnosis Comments BITEWINGS - 4 RADIOGRAPHIC IMAGES Routine 06/03/2020 12:00 AM EST PERIODIC ORAL EVALUATION - ESTABLISHED PATIENT Routine 06/03/2020 12:00 AM EST BI MAMMOGRAM SCREENING BILATERAL Routine 02/21/2019 8:19 AM EDT INTRAORAL - COMPLETE SERIES OF RADIOGRAPHIC IMAGES Routine 09/29/2018 12:00 AM EDT PROPHYLAXIS - ADULT Routine 10/03/2017 1 2:00 AM EDT from Last 3 Months or Most Recently Relevant to Health Maintenance Results * DIGITAL BILATERAL SCREEN 1 (02/21/2019 8:19 AM EDT) Anatomical Region Laterality Modality Breast Bilateral Mammography 02/21/2019 8:19 AM EDT Narrative 02/21/2019 8:22 AM EDT Refer to the Notes tab for result details Legacy Procedure: DIGITAL BILATERAL SCREEN 1 Procedure Note Provider, MD Ida - 10/09/2022 Refer to the Notes tab for result details Legacy Procedure: DIGITAL BILATERAL SCREEN 1 us Historical Provider MD SOLORIO BI PROCEDURES Final R esult from Last 3 Months or Most Recently Relevant to Health Maintenance [facility] ST[facility] AD[facility]
--- OUTSIDE RECORDS SUMMARY | 2025-05-20 17:50 | XMS_ITS | Data Portability ---
Author Organization [facility], [facility] Address [address] [place] [id number] Assessment Encounter Date Assessment Date Assessment LastModified [...] Organization Details Last Modified Time Details Appointments None record ed. Lab None record ed. Referral None record ed. Procedures None record ed. Surgeries None record ed. Imaging None record ed. Medication Orders None record ed. Patient TargetsNo targets recorded. Patient InstructionsNo instructions recorded. Reason for Referral None Reported. Results Created Date Observation Date Name Description Value Unit Range Abnormal Flag Note LastModifiedBy Organization Detail LastModifiedTime 03/07/20 24 03/04/2023 derejei ng/sharda mcclelland tic resul t No observ ation record ed. [email or web address] Not Available 04:24:31 Result Notes None recorded. 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; Note: Date Diagnosed : 03/30/2023 11:35 AM (J38.1) Not Available [facility] 4 03:20:13 Tobacco dependenc e caused by cigarette s 97365993969 619662 Active 2022 Nicotine dependenc e, cigarette s, uncomplic ated; Note: Changed from Z72.0 to F17.210 (06/28/20 23 6:05 AM) , Date Diagnosed : 03/30/2023 11:36 AM (Z72.0) Not Available [facility] 4 03:20:13 Mass of neck 691591436 Active 2022 Localized swelling, mass and lump, neck; Note: Date Diagnosed : 03/30/2023 11:33 AM (R22.1) Not Available [facility] 4 03:20:14 Neck swelling 368916779 Active 2022 Localized swelling, mass and lump, neck; Note: Date Diagnosed : 03/30/2023 11:33 AM (R22.1) Not Available [facility] 4 03:20:14 Postopera tive care Active 2022 Encounter for other specified surgical aftercare ; Note: Date Diagnosed : 3 6:54 AM (Z48.89) Not Available [facility] 4 03:20:13 Chronic hoarsenes s 02562141882 05 Active 2023 OSCAR WU MD [address] [facility],[place] [address], [place], [address] , [facility] - [facility] 4 07:15:08 Feeling of lump in throat 522625874 Active 2024 Yumiko daly [place] - [facility] 5 13:38:27 Problem Notes None recorded. Procedures Surgical History Date Name Laterality Status Provider Name and Address Organization Details Recorded Time 02/26/20 25 Fiberoptic Laryngoscopy (Comprehensive) completed OSCAR WU MD [address] [facility],[address], [place], [address], [facility] - [facility] 02/27/2025 08:38:40 07/20/19 25 Fiberoptic Laryngoscopy (Comprehensive) completed Yumiko Mahoney [place] - [facility] 07/20/2024 13:36:55 02/03/20 24 Fiberoptic Laryngoscopy (Comprehensive) completed OSCAR WU MD [address], [place], [address], [facility] - [facility] 02/03/2024 10:59:54 06/21/20 23 Laryngoscopy with biopsy completed OSCAR WU MD [address], [place], [address], [facility] 02/06/2024 07:13:52 Imaging Results None recorded. [...] Not Available atorvasta tin 20 mg tablet 02/25 completed Medicati on ID: [id number] B rand Name: atorvast atin Sen d Method: E-Prescr ibed Sub s Allowed: subs OK Medic ationGen ericName : atorvast atin Not Available Not Available Not Available benztropi ne 0.5 mg tablet TAKE ONE TABLET BY MOUTH EVERY MORNING active Not Available Not Available No t Available nicotine 14 mg/24 hr daily transderm al patch 02/02 completed Medicati on ID: [id number] B rand Name: nicotine Send Method: E-Prescr ibed Sub s Allowed: subs OK Medic ationGen ericName : nicotine Medicat ion ID: [id number] B rand Name: nicotine Send Method: E-Prescr ibed Sub s Allowed: subs OK Medic ationGen ericName : nicotine Not Available Not Available Not Available albuterol sulfate 2.5 mg/3 mL (0.083 %) solution for nebulizat ion INHALE ONE AMPULE USING A NEBULIZE R EVERY 6 HOURS NEEDED FOR WHEEZING OR SHORTNES S OF BREATH active Not Available Not Available No t Available azithromy liliana 250 mg tablet TAKE 1 TABLET BY MOUTH EVERY DAY FOR 4 DAYS 02/25 completed Not Available Not Available Not Available prednison e 20 mg tablet TAKE 2 TABLETS BY MOUTH EVERY DAY 02/25 completed Not Available Not Available Not Available omeprazol e 40 mg capsule,d elayed release TAKE 1 CAPSULE BY MOUTH TWICE A DAY active Not Available Not Available No t Available acetamino phen ER 650 mg tablet,ex tended release TAKE 2 TABLETS BY MOUTH EVERY 8 HOURS NEEDED FOR PAIN 02/25 completed Not Available Not Available Not Available ziprasido ne 20 mg capsule TAKE ONE CAPSULE EVERY MORNING WITH BREAKFAS T active Not Available Not Available No t Available famotidin e 20 mg tablet active Medicati on ID: [id number] B rand Name: famotidi ne Send Method: [...] MOUTH EVERY 12 HOURS FOR 7 DAYS 02/25 completed Not Available Not Available Not Available lisinopri l 10 mg tablet TAKE [...] Available gabapenti n 300 mg capsule TAKE 1 CAPSULE BY MOUTH 3 TIMES A DAY active Not Available Not Available No t Available lisinopri l 5 mg tablet active Medicati on ID: [id number] B rand Name: lisinopr il Send Method: E-Prescr ibed Sub s Allowed: subs OK Medic ationGen ericName : lisinopr il Not Available Not Available Not Available ziprasido ne 40 mg capsule TAKE ONE CAPSULE AT BEDTIME active Not Available Not Available No t Available mirtazapi ne 15 mg tablet TAKE ONE TABLET BY MOUTH AT BEDTIME NEEDED active Not Available Not Available No t Available ibuprofen 600 mg tablet TAKE 1 TABLET BY MOUTH EVERY 6 HOURS NEEDED FOR PAIN active Not Available Not Available No t Available methylpre dnisolone 4 mg tablets in a dose pack 02/02 completed Not Available Not Available Not Available fluticaso ne propionat e 50 mcg/actua tion nasal spray,chinyere pension active Not Available Not Available Not Available doxycycli ne hyclate 100 mg tablet TAKE 1 TABLET BY MOUTH TWICE A DAY 02/25 completed Not Available Not Available Not Available Ventolin HFA 90 mcg/actua tion aerosol inhaler INHALE TWO PUFFS BY MOUTH EVERY 4 HOURS NEEDED FOR WHEEZING OR SHORTNES S OF BREATH active Not Available Not Available No t Available duloxetin e 30 mg capsule,d elayed release 02/02 completed Medicati on ID: [id number] B rand Name: duloxeti ne Send Method: E-Prescr ibed Sub s Allowed: subs OK Medic ationGen ericName : duloxeti ne Medic ation ID: [id number] B rand Name: duloxeti ne Send Method: [...] Updated DateTime 02/03/2024 157.48 cm 31.3 kg/m2 39539.3 g Brittney Nagy [place] [facility] 02/03/2024 10:38:15 Date Recorded Body height Body mass index (BMI) Body weight Provider Name and Address Organization Details Last Updated DateTime 02/25/2025 162.56 cm 25.7 kg/m2 36435.86 g Brittney Nagy MA [facility] 02/25/2025 13:42:39 Social History None recorded. Functional Status None recorded. Mental Status None recorded. Family History Nothing Reported. Medical History No medical history recorded. Gynecological HistoryNo gynecological history recorded. Obstetrics History GPAL:G 0 P 0 0 0 0 Past Encounters Encounter ID Performer Location Encounter Start Date Encounter Closed Date Diagnosis/Indication Diagnosis SNOMED-CT Code Diagnosis ICD10 Code Diagnosis IMO Codes Diagnosis Note [id number] OSCAR WU MD [facility] [place] [address] [place] [address] 02/03/2024 10:22:57 02/03/2024 13:29:47 Chronic hoarseness 9238187212 105 R49.0 58-year-ol d female presents today [...] cut back and quit smoking. Tobacco user 339309519 Z 72.0 [id number] YUMIKO MAHONEY PA-C [facility] [address] [place] [address] 07/20/2024 12:42:20 07/20/2024 13:29:23 Dysphonia 74285399 R49.0 Tobacco de pendence caused by cigarettes 0401940950 5044346 F17.210 Feeling of lump in throat 004967584 R09.89 [id number] OSCAR WU MD [facility] [address] [place] [address] 02/25/2025 13:37:28 02/25/2025 13:55:06 Dysphonia 59828420 R49.0 59-year-ol d female smoker presents today for reassessme nt of her vocal cords after DL with biopsy in June 2023. There was no malignancy . She has felt some globus lately particular ly on the left. She does admit to more aggressive voice use lately.On exam, I do not see any ulceration or mass. There is persistent vocal cord edema with a small polyp noted at the anterior commissure . No ulcerative or friable lesion. There is a small pale area at the left false cord.We reviewed voice hygiene including avoidance of vocal strain. I encouraged smoking cessation. She has follow-up in April which we can keep for reassessme nt. Tobacco de pendence caused by cigarettes 2840077585 9094569 F17.210 Feeling of lump in throat 450506389 R09.89 Health Concerns Section Related Observation LastModified by Organization Detai ls LastModified Time None Recorded Concern Status LastModified by Organization Details LastModified Time None Recorded Advance Directives Directive None Recorded Payers Insurance Date Sequence Insurance Name Policy Number Policy Bridges Covered Member ID Bridges Member ID Guarantor Name 04/19/2025 1 [facility] (MEDICAID HMO) [id number] Jaqui Auquillar [id number] Jaqui Auquillar Notes Date Note Type Note Provider Name and Address Organization Details Recorded Time 02/03/2024 text/html No changes in health since her last visit. She is smoking 3 to 4 cigarettes/day. OSCAR WU MD [address] [facility],[place] [address], [place], [address], [place] - [facility] 02/06/2024 07:16:57 07/20/2024 text/html ROS as noted in the HPI 58 year old female presents for re-evaluation of mild Marisol's edema [...] does not drink alcohol. OSCAR WU MD [address] [facility],[place] [address], [place], [address], [place] [facility] 07/21/2024 08:04:41 02/25/2025 text/html ROS as noted in the HPI 59-year-old female, smoker, presents today for follow-up. feels something a little on the left last couple of weeks some drama with roommate, raising the voice last week pain, feeling stickysome ear pain bilaterally 3 days for a pack PV: 58 year old female presents for re-evaluation of mild Marisol's edema [...] does not drink alcohol. OSCAR WU MD [address] [place] [address], [place], [address], [facility] - [facility] 02/27/2025 08:46:10 OBGyn Episode No OBEpisode recorded.
--- OUTSIDE RECORDS SUMMARY | 2025-05-20 17:50 | XMS_ITS | Encounter Summary ---
Author Organization [employer] Address [address] [place] [address] [address] [place] [address] Care Team Providers Care Art Display Maker Name Role Phone Unavailable Primary Care Provider Unavailabl e Reason for Visit * Reason Comments Med Refill Encounter Details Date Type Department Care Team (Late st Contact Info) Description 01/31/2023 Refill [facility] [address] [place] [address] Angelo Brown MD [address] [place] [id number] Social History Tobacco Use Types Packs/Day Years [...]
[2025-05-20 20:24] VITALS: BP 103/61; PULSE 80; RESP 16; TEMP 36.6; O2SAT 97
--- NOTE | 2025-05-20 20:53 | ED.GENADULT ---
HPI - General Adult General Chief complaint: Fall Stated complaint: fell from ladder 2 hrs ago Time Seen by Provider: 05/20/25 20:15 Source: patient Limitations: language barrier History of Present Illness ED Provider: Mandy Navas PA-C HPI narrative: 59-year-old female with a history of hyperlipidemia, asthma, GERD, prior H pylori, anxiety and depression presents after fall. Patient states she was climbing up a ladder, she slipped on 1 of the rungs, landing sideways on the ladder on the right side, now complains of right-sided rib pain. Related Data Home Medications ?Medication ?Instructions ?Recorded ?Confirmed albuterol sulfate 90 mcg/actuation 2 puff inhalation Q6H PRN Wheezing 04/14/20 09/23/20 aerosol inhaler (Proventil HFA) cholecalciferol (vitamin D3) 25 25 mcg PO DAILY 04/14/20 09/23/20 mcg (1,000 unit) capsule fluoxetine 20 mg capsule 20 mg PO DAILY 04/14/20 09/23/20 hydroxyzine HCl 25 mg tablet 25 mg PO BID PRN Anxiety 04/14/20 09/23/20 meclizine 25 mg tablet 25 mg PO DAILY 04/14/20 09/23/20 ranitidine HCl 150 mg capsule mg PO 04/14/20 benztropine 0.5 mg tablet 1 tab PO BEDTIME 09/23/20 09/23/20 cyanocobalamin (vitamin B-12) 1 ml IM QMONTH 09/23/20 09/23/20 1,000 mcg/mL injection solution duloxetine 30 mg capsule,delayed 1 cap PO QAM 09/23/20 09/23/20 release (Cymbalta) fluticasone propionate 50 1 - 2 spray intranasal DAILY PRN 09/23/20 09/23/20 mcg/actuation nasal Nasal Congestion spray,suspension ibuprofen 800 mg tablet 1 tab PO TID PRN pain 09/23/20 09/23/20 loratadine 10 mg tablet 1 tab PO DAILY PRN allergies 09/23/20 09/23/20 mirtazapine 30 mg tablet 1 tab PO BEDTIME 09/23/20 09/23/20 pantoprazole 40 mg tablet,delayed 1 tab PO DAILY 09/23/20 09/23/20 release Previous Rx's ?Medication ?Instructions ?Recorded bisacodyl 5 mg tablet,delayed 10 mg (2 x 5 mg) PO ONCE 1 day #2 07/29/20 release (Dulcolax (bisacodyl)) tabs bismuth subsalicylate 262 mg 2 tab PO QID 14 days #112 tabs 10/03/20 chewable tablet metronidazole 500 mg tablet 500 mg PO TID 14 days #42 tabs 10/03/20 pantoprazole 40 mg tablet,delayed 40 mg PO BID 14 days #28 tabs 10/03/20 release lactobacillus combination no.8 3 3,000 mmu cells PO DAILY #30 caps 10/15/20 billion cell capsule (Adult Probiotic) hydrocortisone 2.5 % topical cream 1 appl NV BID-QID PRN hemorrhoids 01/07/21 with perineal applicator #30 grams (Anusol-HC) sennosides 8.6 mg tablet (Natural 8.6 mg PO BEDTIME PRN constipation 01/07/21 Senna Laxative) #30 tabs methylcellulose (laxative) 500 mg 500 mg PO DAILY #30 tabs 01/28/21 tablet (Citrucel) azithromycin 250 mg tablet 250 mg PO DAILY 4 days #4 tabs 01/22/25 (Zithromax) doxycycline hyclate 100 mg tablet 100 mg PO BID #20 tabs 01/22/25 prednisone 20 mg tablet 40 mg (2 x 20 mg) PO DAILY #10 tabs 01/22/25 ibuprofen 600 mg tablet 600 mg PO Q6H PRN pain #30 tabs 03/09/25 ketorolac 10 mg tablet 10 mg PO Q6H PRN pain #20 tabs 05/20/25 methocarbamol 750 mg tablet 1,500 mg (2 x 750 mg) PO Q8H PRN 05/20/25 pain, moderate #24 tabs Allergies Allergy/AdvReac Type Severity Reaction Status Date / Time Penicillins Allergy Intermediate RASH Verified 05/20/25 17:37 Review of Systems Review of Systems: Yes all other systems are reviewed and are negative Constitutional: Constitutional: Denies fatigue and Denies fever(s) Cardiovascular: Cardiovascular: Reports chest pain and Denies dyspnea Respiratory: Respiratory: Denies dyspnea Endocrine: Endocrine: Denies fatigue PMF Past Medical History Attestation statement: The following information was validated with the patient. Medical History Helicobacter pylori (H. pylori) Tubular adenoma Palpitations Back pain GERD (gastroesophageal reflux disease) Anxiety and depression History of vertigo Asthma Elevated cholesterol Surgical History H/O colonoscopy History of carpal tunnel surgery of right wrist History of esophagogastroduodenoscopy (EGD) History of throat surgery History of appendectomy History of carpal tunnel release Family History Family History Father No problems noted. Mother No problems noted. Social History Social History Household Members: Spouse Alcohol intake: former Patient Tobacco Use Status: Current everyday Tobacco user Cigarette Packs Per Day: 1 Substance Use Type: Marijuana Advance Directives: No Advance Directives Information Provided: Yes Physical Exam ED Vital Signs: Vital Signs - 24 hr 05/20/25 17:28 05/20/25 17:31 05/20/25 20:24 Temperature 98.3 F 98.1 F 97.8 F Pulse Rate 78 82 80 Respiratory Rate 16 16 16 Blood Pressure 101/63 110/72 103/61 Pulse Oximetry 96 96 97 Oxygen Delivery Method Room Air Room Air Room Air BMI result Body Mass Index 25.7 Const Other: Alert well-appearing Orientation/consciousness: patient oriented x3 Chest Other: Generalized tenderness to palpation along right-sided chest wall, no contusion noted no swelling Resp Effort & Inspection: normal respiratory effort Cardio Other: Normal peripheral perfusion Skin Other: Warm dry no rash Neuro General: patient oriented x3, gait normal, no focal motor deficits and CN's II-XI intact bilaterally Psych Other: Cooperative Medical Decision Making Medical Decision Making MDM Narrative: 59-year-old female with a history of hyperlipidemia, asthma, GERD, prior H pylori, anxiety and depression presents after fall. Patient states she was climbing up a ladder, she slipped on 1 of the rungs, landing sideways on the ladder on the right side, now complains of right-sided rib pain. No relevant chronic issues History: Per patient I have considered the following differential diagnoses: Chest wall contusion, musculoskeletal strain, rib fracture, pneumothorax Plan: Chest x-ray ordered, there was no acute injury beyond a contusion. We will treat accordingly I have independently reviewed the following tests: Chest x-ray:Findings: No consolidation or effusion. Cardiac and mediastinal contours are stable. Bones unremarkable. Impression: 1. No acute pulmonary disease. Differential Diagnosis Differential Diagnoses: The differential diagnosis associated with the presentation includes See medical decision-making Admission/Observation Consideration of admission/observation: Escalation of care including admission/observation considered Not applicable Radiology Impression Discussion of test interpretation with radiology: I have reviewed the radiologist's reading. Discharge Plan Discharge Clinical Impression: Chest wall contusion Patient Disposition: Home, Self-Care Instructions: Chest Contusion (ED) Additional Instructions: The chest x-ray was negative for fracture of the ribs. You have a chest wall contusion. See home care instructions. Use the ketorolac as directed this is an anti-inflammatory take it with food. Use the methocarbamol as needed for further pain, this is a muscle relaxant, it will cause drowsiness, do not drive or operate machinery while taking the medication. Follow up with your primary care provider as needed. Prescriptions: New methocarbamol 750 mg tablet 1,500 mg PO Q8H PRN (Reason: pain, moderate) Qty: 24 0RF ketorolac 10 mg tablet 10 mg PO Q6H PRN (Reason: pain) Qty: 20 0RF Rx Instructions: maximum total duration of 5 days from all oral, intranasal, or parenteral formulations. The patient received an intramuscular dose of Toradol here in the emergency room No Action bismuth subsalicylate 262 mg tablet,chewable 2 tab PO QID 14 Days Qty: 112 0RF metronidazole 500 mg tablet 500 mg PO TID 14 Days Qty: 42 0RF pantoprazole 40 mg tablet,delayed release (DR/EC) 40 mg PO BID 14 Days Qty: 28 0RF Citrucel 500 mg tablet 500 mg PO DAILY Qty: 30 2RF Rx Instructions: one capsule with full glass of water benztropine 0.5 mg tablet 1 tab PO BEDTIME ibuprofen 800 mg tablet 1 tab PO TID PRN (Reason: pain) pantoprazole 40 mg tablet,delayed release (DR/EC) 1 tab PO DAILY cyanocobalamin (vitamin B-12) 1,000 mcg/mL solution 1 ml IM QMONTH mirtazapine 30 mg tablet 1 tab PO BEDTIME fluticasone propionate 50 mcg/actuation spray,suspension 1 - 2 spray intranasal DAILY PRN (Reason: Nasal Congestion) loratadine 10 mg tablet 1 tab PO DAILY PRN (Reason: allergies) duloxetine [Cymbalta] 30 mg capsule,delayed release(DR/EC) 1 cap PO QAM prednisone 20 mg tablet 40 mg PO DAILY Qty: 10 0RF doxycycline hyclate 100 mg tablet 100 mg PO BID Qty: 20 0RF azithromycin [Zithromax] 250 mg tablet 250 mg PO DAILY 4 Days Qty: 4 0RF Rx Instructions: start on day 2 of therapy ibuprofen 600 mg tablet 600 mg PO Q6H PRN (Reason: pain) Qty: 30 0RF cholecalciferol (vitamin D3) 25 mcg (1,000 unit) capsule 25 mcg PO DAILY ranitidine HCl 150 mg capsule PO fluoxetine 20 mg capsule 20 mg PO DAILY hydroxyzine HCl 25 mg tablet 25 mg PO BID PRN (Reason: Anxiety) meclizine 25 mg tablet 25 mg PO DAILY albuterol sulfate [Proventil HFA] 90 mcg/actuation HFA aerosol inhaler 2 puff inhalation Q6H PRN (Reason: Wheezing) bisacodyl [Dulcolax (bisacodyl)] 5 mg tablet,delayed release (DR/EC) 10 mg PO ONCE 1 Days Qty: 2 0RF Rx Instructions: take 2 tabs at noon the day before your colonoscopy Adult Probiotic 3 billion cell capsule 3,000 mmu cells PO DAILY Qty: 30 2RF Rx Instructions: administer with a meal sennosides [Natural Senna Laxative] 8.6 mg tablet 8.6 mg PO BEDTIME PRN (Reason: constipation) Qty: 30 3RF hydrocortisone [Anusol-HC] 2.5 % cream with perineal applicator 1 appl NV BID-QID PRN (Reason: hemorrhoids) Qty: 30 2RF Print Language: Ukrainian
[2025-05-20 21:12] VITALS: BP 103/61; PULSE 80; RESP 16; TEMP 36.6; O2SAT 97
== END 2025-05-20 21:17 | disposition home or self-care (01) ==
PROVIDERS: Emergency Provider Emergency Medicine
DX: S20.211A Contusion of right front wall of thorax, initial encounter (principal); J45.909 Unspecified asthma, uncomplicated; W11.XXXA Fall on and from ladder, initial encounter; Y93.89 Activity, other specified; Y92.89 Other specified places as the place of occurrence of the external cause; Y99.8 Other external cause status; Z79.899 Other long term (current) drug therapy
CPT/HCPCS: 71046; 96372; 99283; 99284; J1885

== ENCOUNTER → 2025-05-20 19:20 | Outpatient (BNV) | payer OTHER, SELFPAY | PROVIDERS: Visit Provider Radiology Diagnostic Radiology | DX: R07.89 Other chest pain (principal); W11.XXXA Fall on and from ladder, initial encounter | CPT/HCPCS: 71046 ==

== ENCOUNTER 2025-05-28 14:17 | Emergency (ER) | payer OTHER, SELFPAY ==
--- NOTE | ~2025-05-28 | CT_ITS ---
EXAMINATION: CT brain and CT cervical spine without contrast. CLINICAL INDICATION: Fall, dizziness. COMPARISON: CT brain 01/31/2025. TECHNIQUE: 5 mm thin axial and reformatted 2 mm thin sagittal and coronal images of brain were obtained. Subsequently 3 mm thin and reformatted 2 mm thin sagittal and coronal images of cervical spine were obtained. DLP: [id number]. One or more of the following dose reduction techniques were used: Automated exposure control, adjustment of the mA and/or kV according to patient size, and/or iterative reconstruction. Unless otherwise specified, incidental findings do not require dedicated imaging follow-up. FINDINGS: Brain: There is no acute intra-axial, extra-axial bleed, masses or midline shift. There is no acute infarction evolution. There is no edema. The agarwal to white matter differentiation is maintained normal. The lateral ventricles are symmetrical in size and configuration without enlargement. There is pericallosal calcification adjacent to splenium likely vascular unchanged to previous CT brain 01/31/2025 Bone windows reveal no calvarial abnormality. There is no scalp soft tissue normality. There is minimal mucosal thickening bilateral maxillary sinuses. Otherwise rest of the paranasal sinuses and mastoid air cells are well-aerated Cervical spine: An sagittal reconstructed images there is reversal of cervical lordosis. The vertebral heights and alignment is normal. There is loss of C5-C6, C6-7 and C7-T1 disc heights with moderate ventral spondylosis at C4-5 through C6/7 disc level. The craniovertebral junction and the C1-C2 alignment is normal. No visible acute fracture, dislocation or subluxation seen. The prevertebral and paravertebral soft tissues are normal. The airways widely patent. There is mild bilateral narrowing of C5-C6, C6-C 7 neural foramina from uncovertebral hypertrophic changes. Lung apices are clear. CT/CT cervical spine wo IV con IMPRESSION: No acute intracranial process seen. Reversal of cervical lordosis with degenerative disc changes. No visible acute fracture, dislocation or subluxation seen. Electronically signed by: Javy Hanks MD 05/28/2025 04:26 PM EST
[2025-05-28 14:49] VITALS: BP 126/81; PULSE 88; RESP 16; TEMP 36.4; BMI 25.7
--- NOTE | 2025-05-28 16:27 | ECG_ITS ---
Test Reason : DIZZINESS Blood Pressure : */* mmHG Vent. Rate : 70 BPM Atrial Rate : 70 BPM P-R Int : 154 ms QRS Dur : 100 ms QT Int : 386 ms P-R-T Axes : 50 15 24 degrees QTcB Int : 416 ms Normal sinus rhythm Incomplete right bundle branch block Borderline ECG When compared with ECG of 31-Jan-2025 10:30, No significant change was found Referred By: Lanette Raygoza Electronically Signed By: RICKI VERDIN MD
--- OUTSIDE RECORDS SUMMARY | 2025-05-28 17:02 | XMS_ITS | Encounter Summary ---
Author Organization [employer] Address [address] [facility] [address] [place] [address] Care Team Providers Care Research Test Engine Operator Name Role Phone Unavailable Primary Care Provider Unavailabl e Encounter Details Date Type Department Care Team (Latest Contact Info) Description 07/30/2019 Abstract [facility] CONVERSIONS Dental, Provider, DDS Social History [...]
--- OUTSIDE RECORDS SUMMARY | 2025-05-28 17:02 | XMS_ITS | Continuity of Care Document ---
Author Organization [facility], [facility] Address [address] [place] [address] Assessment No assessment recorded. Plan of Treatment Reminders Order Date Submit Date Provider Last Modified By Organization Details Last Modified Time Details Appointments None record ed. Lab None record ed. Referral None record ed. Procedures None record ed. Surgeries None record ed. Imaging None record ed. Medication Orders None record ed. Patient TargetsNo targets recorded. Patient InstructionsNo instructions recorded. Reason for Referral None Reported. 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; Note: Date Diagnosed : 03/30/2023 11:35 AM (J38.1) Not Available [facility] 4 03:20:13 Tobacco dependenc e caused by cigarette s 82659207411 998216 Active 2022 Nicotine dependenc e, cigarette s, uncomplic ated; Note: Changed from Z72.0 to F17.210 (06/28/20 6:05 AM) , Date Diagnosed : 03/30/2023 11:36 AM (Z72.0) Not Available [facility] 4 03:20:13 Mass of neck 004198709 Active 2022 Localized swelling, mass and lump, neck; Note: Date Diagnosed : 03/30/2023 11:33 AM (R22.1) Not Available [facility] 4 03:20:14 Neck swelling 448986238 Active 2022 Localized swelling, mass and lump, neck; Note: Date Diagnosed : 03/30/2023 11:33 AM (R22.1) Not Available [facility] 4 03:20:14 Postopera tive care Active 2022 Encounter for other specified surgical aftercare ; Note: Date Diagnosed : 3 6:54 AM (Z48.89) Not Available [facility] 4 03:20:13 Chronic hoarsenes s 36175134384 05 Active 2023 OSCAR WU MD [address] [facility],[place] [address], [place], [address] , [facility] - [facility] 4 07:15:08 Feeling of lump in throat 849383773 Active 2024 Yumiko daly [place] - [facility] 5 13:38:27 Problem Notes None recorded. Procedures Surgical History Date Name Laterality Status Provider Name and Address Organization Details Recorded Time 02/26/20 25 Fiberoptic Laryngoscopy (Comprehensive) completed OSCAR WU MD [address] [facility],[address], [address], [facility] - [facility] 02/27/2025 08:38:40 07/20/19 25 Fiberoptic Laryngoscopy (Comprehensive) completed Yumiko Andrew [place] - [facility] 07/20/2024 13:36:55 02/03/20 24 Fiberoptic Laryngoscopy (Comprehensive) completed OSCAR WU MD [address] [facility] [place] [address], [place], [address], [facility] - [facility] 02/03/2024 10:59:54 06/21/20 23 Laryngoscopy with biopsy completed OSCAR WU MD [address] [facility] [place],VANESSA [address] [place] [address], [phone], [facility] - [facility] 02/06/2024 07:13:52 Imaging Results None recorded. Procedure [...] mg tablet 02/25 completed Medicati on ID: [id number] B rand Name: atorvast atin Sen d Method: E-Prescr ibed Sub s Allowed: subs OK Medic ationGen ericName : atorvast atin Not Available Not Available Not Available benztropi ne 0.5 mg tablet TAKE ONE TABLET BY MOUTH EVERY MORNING active Not Available Not Available No t Available nicotine 14 mg/24 hr daily transderm al patch 02/02 completed Medicati on ID: [id number] B rand Name: nicotine Send Method: E-Prescr ibed Sub s Allowed: subs OK Medic ationGen ericName : nicotine Medicat ion ID: [id number] B rand Name: nicotine Send Method: E-Prescr [...] 20 mg tablet active Medicati on ID: [id number] B rand Name: famotidi ne Send Method: [...] 5 mg tablet active Medicati on ID: [id number] B rand Name: lisinopr il Send Method: [...] elayed release 02/02 completed Medicati on ID: [id number] B rand Name: duloxeti ne Send Method: E-Prescr ibed Sub s Allowed: subs OK Medic ationGen ericName : duloxeti ne Medic ation ID: [id number] B rand Name: duloxeti ne Send Method: [...] Updated DateTime 02/25/2025 162.56 cm 25.7 kg/m2 46016.86 g Brittney Nagy [place] - [facility] 02/25/2025 13:42:39 Social History None recorded. Functional Status None recorded. Mental Status None recorded. Family History Nothing Reported. Medical History No medical history recorded. Gynecological HistoryNo gynecological history recorded. Obstetrics History GPAL:G 0 P 0 0 0 0 Past Encounters Encounter ID Performer Location Encounter Start Date Encounter Closed Date Diagnosis/Indication Diagnosis SNOMED-CT Code Diagnosis ICD10 Code Diagnosis IMO Codes Diagnosis Note [id number] OSCAR WU MD [facility] [address] [address] 02/25/2025 13:37:28 02/25/2025 13:55:06 Dysphonia 37647965 R49.0 59-year-ol d female smoker presents today [...] nt. Tobacco de pendence caused by cigarettes 7265383918 8589392 F17.210 Feeling of lump in throat 685923304 R09.89 Health Concerns Section Related Observation LastModified by Organization Detai ls LastModified Time None Recorded Concern Status LastModified by Organization Details LastModified Time None Recorded Payers Encounter Date Sequence Insurance Name Policy Number Policy Bridges Covered Member ID Bridges Member ID Guarantor Name 02/25/[address] [place] [address] (MEDICAID HMO) [id number] Jaqui Auquillar [id number] Jaqui Auquillar Notes Date Note Type Note Provider Name and Address Organization Details Recorded Time 02/25/2025 text/html ROS as noted in the [...] does not drink alcohol. OSCAR WU MD [address] [place] [address], [phone], [facility] - [facility] 02/27/2025 08:46:10 OBGyn Episode No OBEpisode recorded.
--- OUTSIDE RECORDS SUMMARY | 2025-05-28 17:02 | XMS_ITS | Clinical Summary ---
Author Organization [facility] ity Address [address] [place] [address] Care Team Providers Care Electronic Technologist Name Role Phone Unavailable Primary Care Provider [...] Depression Screening 07/18/2024 COVID-19 Vaccine (1 - 2024-2 6 season) 2025 Influenza Vaccine (#1) 2025 RSV [...] Procedure Name Priority Date/Time Associated Diagnosis Comments [facility] Routine 08/14/2020 10:31 AM EST Encounter for screening mammogram for malignant neoplasm of breast from Last 3 Months or Most Recently Relevant to Health Maintenance Results * [facility] (08/14/2020 10:31 AM EST) Anatomical Region Laterality Modality Mammography 08/12/2020 2:42 PM EST Narrative 08/14/2020 10:31 AM EST [facility] Diagnostic Imaging Department [address] [place], [place] [id number] Patient: JAQUI MARSHALL /Age/Sex: 1965 - 54 - F Unit#: [id number] Location/Status: [facility] Mn[facility]onic/Ordering Site: [facility] Ordering Physician: GEOFF BOWERS MD [facility] Screening Digital - 08/12/20 - 1518 EXAM: [facility] Screening Digital EXAM DATE AND TIME: 08/12/2020 3:19 PM HISTORY: Screening. COMPARISON: 02/20/19, 07/28/16, 07/31/14 [place], [place] TECHNIQUE: CC and MLO views of both breasts were obtained using full field digital mammography. Bilateral digital breast tomosynthesis was performed in the MLO projection. Computer aided detection with the [employer] 7.2-H was employed. TISSUE DENSITY: c. The [...] Imaging Evaluation RECOMMENDATION(S): 1: Ultrasound follow-up RIGHT 84000, [id number] 3340F, 7025F Dictating Physician: REID HI MD Electronically Signed by: REID HI MD Dic Date/Time: 08/14/20 1029 Sign date/Time: 08/14/20 1031 Procedure Note Reid Hi MD - 07/06/2022 [facility] Diagnostic Imaging Department [address] [place] [id number] Patient: JAQUI MARSHALL./Age/Sex: 1965 - 54 - F Unit#: [id number] Location/Status: [facility] CLI Mnemonic/Ordering Site: [facility] Ordering Physician: GEOFF BOWERS MD [facility] Screening Digital - 08/12/20 - 1518 EXAM: [facility] Screening Digital EXAM DATE AND TIME: 08/12/2020 3:19 PM HISTORY: Screening. COMPARISON: 02/20/19, 07/28/16, 07/31/14 [place], [place] TECHNIQUE: CC and MLO views of both breasts were obtained using fullfield digital mammography. Bilateral digital breast tomosynthesis was performedin the MLO projection. Computer aided detection with the [employer]-gauzzas employed. TISSUE DENSITY: c. The breasts are [...] Imaging Evaluation RECOMMENDATION(S): 1: Ultrasound follow-up RIGHT 21566, 32834 3340F, 7025F Dictating Physician: REID HI MD Electronically Signed by: REID HI MD Dic Date/Time: 08/14/20 1029 Sign date/Time: 08/14/20 1031 us Geoff Bowers MD IMG BI PROCEDURES Final R esult from Last 3 Months or Most Recently Relevant to Health Maintenance
--- OUTSIDE RECORDS SUMMARY | 2025-05-28 17:02 | XMS_ITS | Clinical Summary ---
Author Organization [employer] Address [address] [place] [address] 7[address] [place] [address] Care Team Providers Care White Sugar Supervisor Name Role Phone Unavailable Primary Care [...] Most Recently Relevant to Health Maintenance [facility] ST[facility] ADULT
--- OUTSIDE RECORDS SUMMARY | 2025-05-28 17:02 | XMS_ITS | Encounter Summary ---
Author Organization [employer] Address [address] [place] [address] [address] [place] [address] Care Team Providers Care Channeling Machine Operator Name Role Phone Unavailable Primary Care Provider Unavailabl e Reason for Visit * Reason Comments Med Refill Encounter Details Date Type Department Care Team (Late st Contact Info) Description 04/13/2023 Refill [facility] [address] [place] [address] Angelo Brown MD [address] [place] [id number] Social History Tobacco Use Types Packs/Day Years [...]
--- OUTSIDE RECORDS SUMMARY | 2025-05-28 17:02 | XMS_ITS | Data Portability ---
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; Note: Date Diagnosed : 03/30/2023 11:35 AM (J38.1) Not Available [facility] 4 03:20:13 Tobacco dependenc e caused by cigarette s 71620534445 080355 Active 2022 Nicotine dependenc e, cigarette s, uncomplic ated; Note: Changed from Z72.0 to F17.210 (06/28/20 23 6:05 AM) , Date Diagnosed : 03/30/2023 11:36 AM (Z72.0) Not Available [facility] 4 03:20:13 Mass of neck 951706378 Active 2022 Localized swelling, mass and lump, neck; Note: Date Diagnosed : 03/30/2023 11:33 AM (R22.1) Not Available [facility] 4 03:20:14 Neck swelling 853356502 Active 2022 Localized swelling, mass and lump, neck; Note: Date Diagnosed : 03/30/2023 11:33 AM (R22.1) Not Available [facility] 4 03:20:14 Postopera tive care Active 2022 Encounter for other specified surgical aftercare ; Note: Date Diagnosed : 3 6:54 AM (Z48.89) Not Available [facility] 4 03:20:13 Chronic hoarsenes s 46484322596 05 Active 2023 OSCAR WU MD [address] [facility],[place] [address], [facility] [place], [address] , [facility] - [facility] [place] 4 07:15:08 Feeling of lump in throat 868005960 Active 2024 Yumiko dlay [place] - [facility] [place] 5 13:38:27 Problem Notes None recorded. Procedures Surgical History Date Name Laterality Status Provider Name and Address Organization Details Recorded Time 02/26/20 25 Fiberoptic Laryngoscopy (Comprehensive) completed OSCAR WU MD [address] [facility],[address], [place], [address], [facility] - [facility] [place] 02/27/2025 08:38:40 07/20/19 25 Fiberoptic Laryngoscopy (Comprehensive) completed Yumiko Mahoney [place] [facility] 07/20/2024 13:36:55 02/03/20 24 Fiberoptic Laryngoscopy (Comprehensive) completed OSCAR WU MD [address] [place],[address], [place], [address], [facility] - [facility] 02/03/2024 10:59:54 06/21/20 23 Laryngoscopy with biopsy completed OSCAR WU MD [address], [place], [address], [facility] 02/06/2024 07:13:52 Imaging Results None recorded. Procedure [...] mg tablet 02/25 completed Medicati on ID: [id number] B rand Name: atorvast atin Sen d Method: E-Prescr ibed Sub s Allowed: subs OK Medic ationGen ericName : atorvast atin Not Available Not Available Not Available benztropi ne 0.5 mg tablet TAKE ONE TABLET BY MOUTH EVERY MORNING active Not Available Not Available No t Available nicotine 14 mg/24 hr daily transderm al patch 02/02 completed Medicati on ID: [id number] B rand Name: nicotine Send Method: E-Prescr ibed Sub s Allowed: subs OK Medic ationGen ericName : nicotine Medicat ion ID: [id number] B rand Name: nicotine Send Method: E-Prescr [...] 20 mg tablet active Medicati on ID: [id number] B rand Name: famotidi ne Send Method: [...] 5 mg tablet active Medicati on ID: [id number] B rand Name: lisinopr il Send Method: [...] elayed release 02/02 completed Medicati on ID: [id number] B rand Name: duloxeti ne Send Method: E-Prescr ibed Sub s Allowed: subs OK Medic ationGen ericName : duloxeti ne Medic ation ID: [id number] B rand Name: duloxeti ne Send Method: [...] Updated DateTime 02/03/2024 157.48 cm 31.3 kg/m2 54928.3 g Brittney Nagy [place] [facility] 02/03/2024 10:38:15 Date Recorded Body height Body mass index (BMI) Body weight Provider Name and Address Organization Details Last Updated DateTime 02/25/2025 162.56 cm 25.7 kg/m2 47577.86 g Brittney Nagy MA [facility] 02/25/2025 13:42:39 Social History None recorded. Functional [...] Note [id number] OSCAR WU MD [facility] [place] [address] [place] [address] 02/03/2024 10:22:57 02/03/2024 13:29:47 Chronic hoarseness 4136874572 105 R49.0 58-year-ol d female presents today [...] cut back and quit smoking. Tobacco user 840570009 Z 72.0 [id number] YUMIKO MAHONEY PA-C [facility] [address] [place] [address] 07/20/2024 12:42:20 07/20/2024 13:29:23 Dysphonia 18362240 R49.0 Tobacco de pendence caused by cigarettes 7631282200 3267927 F17.210 Feeling of lump in throat 354983327 R09.89 [id number] OSCAR WU MD [facility] [address] [place] [address] 02/25/2025 13:37:28 02/25/2025 13:55:06 Dysphonia 95177382 R49.0 59-year-ol d female smoker presents today [...] nt. Tobacco de pendence caused by cigarettes 7869971530 8151582 F17.210 Feeling of lump in throat 436791428 R09.89 Health Concerns Section Related Observation LastModified by Organization Detai ls LastModified Time None Recorded Concern Status LastModified by Organization Details LastModified Time None Recorded Advance Directives Directive None Recorded Payers Insurance Date Sequence Insurance Name Policy Number Policy Bridges Covered Member ID Bridges Member ID Guarantor Name 04/19/2025 1 [facility] (MEDICAID HMO) [id number] Jaqui Auquillar [id number] Jaqui Auquillar Notes Date Note Type Note Provider Name and Address Organization Details Recorded Time 02/03/2024 text/html No changes in health since her last visit. She is smoking 3 to 4 cigarettes/day. OSCAR WU MD [address] [facility],[place] [address], [place], [address], [place] [facility] 02/06/2024 07:16:57 07/20/2024 text/html ROS as noted [...] not drink alcohol. OSCAR WU MD [address] [facility],[place] [address], [place], [address], [place] [facility] 07/21/2024 08:04:41 02/25/2025 text/html ROS as noted in the HPI 59-year-old female, smoker, presents today for follow-up. feels something a little on the left last couple of weeks some drama with roommate, raising the voice last week pain, feeling stickysome ear pain bilaterally 3 days for a pack PV: 58 year old female presents for re-evaluation of mild Mariosl's edema on exam in January 2024. Had [...] does not drink alcohol. OSCAR WU MD [address] [place] [address], [place], [address], [facility] - [facility] 02/27/2025 08:46:10 OBGyn Episode No OBEpisode recorded.
--- OUTSIDE RECORDS SUMMARY | 2025-05-28 17:02 | XMS_ITS | Encounter Summary ---
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
--- NOTE | 2025-05-28 17:21 | ED_ITS ---
HPI - Dizziness General Chief Complaint: Dizziness Stated Complaint: fall, dizziness, +head strike. 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 Patient states that she was climbing into her home's window as her door was locked, using a ladder, when suddenly she misstepped and she fell landing on her right side. She reports that she did hit her head, and reported that she lost consciousness for several sec. she was seen here in the emergency room, she did not have a CT of the head at that time - per the note, patient reported no head strike or LOC. Patient reports that she has had intermittent headaches and intermittent dizziness. She states that the dizziness occurs with positional changes. She denies any chest pain or shortness for breath. No severe headache, current dizziness, chest pain, shortness of breath, abdominal pain, nausea, vomiting or diarrhea. No other complaints or concerns at this time. MD elicited complaint: dizziness Onset (ago): day(s) Timing: sudden onset Severity: moderate Description: room spinning Context: change in body position History of similar symptoms: No Exacerbating factors: movement/ambulation Relieving factors: remaining still Associated symptoms: denies other symptoms Related Data Home Medications ?Medication ?Instructions ?Recorded ?Confirmed albuterol sulfate 90 mcg/actuation 2 puff inhalation Q 6H PRN Wheezing 04/14/20 09/23/20 aerosol inhaler (Proventil HFA) cholecalciferol (vitamin D3) 25 25 mcg PO DAILY 09/23/20 mcg (1,000 unit) capsule fluoxetine 20 mg capsule 20 mg PO DAILY 04/14/2004/07 hydroxyzine HCl 25 mg tablet 25 mg PO BID PRN Anxiety 04/14/20 09/23/20 meclizine 25 mg tablet 25 mg PO DAILY 04/14/2004/07 ranitidine HCl 150 mg capsule mg PO 04/14/20 benztropine 0.5 mg tablet 1 tab PO BEDTIME 09/23/20 cyanocobalamin (vitamin B-12) 1 ml IM QMONTH 09/23/20 09/23/20 1,000 mcg/mL injection solution duloxetine 30 mg capsule,delayed 1 cap PO QAM 09/23/20 09/23/20 release (Cymbalta) fluticasone propionate 50 1 - 2 spray intranasal DAILY PRN 09/23/20 09/23/20 mcg/actuation nasal Nasal Congestion spray,suspension ibuprofen 800 mg tablet 1 tab PO TID PRN pain 09/23/20 loratadine 10 mg tablet 1 tab PO DAILY PRN allergies 09/23/20 09/23/20 mirtazapine 30 mg tablet 1 tab PO BEDTIME 09/23/20 pantoprazole 40 mg tablet,delayed 1 tab PO DAILY 09/2309/23/20 release Previous Rx's ?Medication ?Instructions ?Recorded bisacodyl 5 mg tablet,delayed 10 mg (2 x 5 mg) PO ONCE 1 day #2 07/29/20 release (Dulcolax (bisacodyl)) tabs bismuth subsalicylate 262 mg 2 tab PO QID 14 days #112 tabs 10/03/20 chewable tablet metronidazole 500 mg tablet 500 mg PO TID 14 days #42 tabs 10/03/20 pantoprazole 40 mg tablet,delayed 40 mg PO BID 14 days #28 tabs 10/03/20 release lactobacillus combination no.8 3 3,000 mmu cells PO DA BRYCE #30 caps 10/15/20 billion cell capsule (Adult Probiotic) hydrocortisone 2.5 % topical cream 1 appl [place] BID-QID P RN hemorrhoids 01/07/21 with perineal applicator #30 grams (Anusol-HC) sennosides 8.6 mg tablet (Natural 8.6 mg PO BEDTIME WY N constipation 01/07/21 Senna Laxative) #30 tabs methylcellulose (laxative) 500 mg 500 mg PO DAILY #30 tabs 01/28/21 tablet (Citrucel) azithromycin 250 mg tablet 250 mg PO DAILY 4 days #4 t abs 01/22/25 (Zithromax) doxycycline hyclate 100 mg tablet 100 mg PO BID #20 ta bs 01/22/25 prednisone 20 mg tablet 40 mg (2 x 20 mg) PO DAILY # 10 tabs 01/22/25 ibuprofen 600 mg tablet 600 mg PO Q6H PRN pain #30 t abs 03/09/25 ketorolac 10 mg tablet 10 mg PO Q6H PRN pain #20 ta bs 05/20/25 methocarbamol 750 mg tablet 1,500 mg (2 x 750 mg) PO Q 8H PRN 05/20/25 pain, moderate #24 tabs Allergies Allergy/AdvReac Type Severity Reaction Status Date / Time Penicillins Allergy Intermediate RASH Verified 05/28/25 14:52 Review of Systems 2 Review of Systems: Constitutional : No Fever, No Chills ENT/Mouth : No sore throat, No Rhinorrhea Eyes: No Eye Pain, No Swelling, No Redness Cardiovascular : No Chest Pain, No SOB Respiratory : No Cough, No Sputum Gastrointestinal : No Nausea, No Vomiting, No Diarrhea, No abdominal Pain Genitourinary : No Dysuria, No Hematuria Musculoskeletal : No joint pain, No Myalgias, No Joint Swelling Skin : No Skin Lesions Neuro : No Weakness, No Numbness, No Headache All other systems reviewed and are negative Yes all other systems are reviewed and are negative Constitutional: Constitutional: Reports as per [facility] Past Medical History Attestation statement: The following information was validated with the patient. Medical History Helicobacter pylori (H. pylori) Tubular adenoma Palpitations Back pain GERD (gastroesophageal reflux disease) Anxiety and depression History of vertigo Asthma Elevated cholesterol Surgical History H/O colonoscopy History of carpal tunnel surgery of right wrist History of esophagogastroduodenoscopy (EGD) History of throat surgery History of appendectomy History of carpal tunnel release Family History Family History Father No problems noted. Mother No problems noted. Social History Social History Household Members: Spouse Alcohol intake: former Patient Tobacco Use Status: Current everyday Tobacco user Cigarette Packs Per Day: 1 Substance Use Type: Marijuana Physical Exam 2 Vital Signs: Vital Signs: Last Vital Signs Temp 97.7 F 05/28/25 19:01 Pulse 83 05/28/25 19:01 Resp 16 05/28/25 19:01 BP 139/88 05/28/25 19:01 Pulse Ox 96 05/28/25 19:01 O2 Del Method Room Air 05/28/25 19:01 BMI result Body Mass Index 25.7 Const: General: cooperative, comfortable and no acute distress O rientation/consciousness: patient oriented x3 Limitations: no limitations HEENT: Head: Yes normal to inspection, Yes normocephalic and Yes atraumatic Ears: hearing grossly normal bilaterally General nose exam: Normal external nose present Face and sinus: Yes normal facial exam Mouth: Normal oral and palatal mucosa present, oropharynx normal and moist mucous membranes Throat: Yes posterior oropharynx normal Eyes: General: appearance normal, both eyes and all related structures E yelids: Yes eyelids normal Conjunctivae: conjunctivae normal Sclerae: s clerae normal Pupils: Equal, round and reactive pupils present EOM: EOMs intact bilaterally Neck: Neck: Yes normal visual inspection, Yes full ROM and Yes no lymphadenopathy Lymphatic: no lymphadenopathy noted Chest: Chest palpation & inspection: normal inspection of the chest Resp: Effort & Inspection: normal respiratory effort and able to speak in complete sentences Auscultation: clear to auscultation bilaterally, no crackles, no rales, no rhonchi and no wheezes Cardio: Rate: regular rate Rhythm: regular rhythm Heart sounds: S1 normal heart sound present and S2 normal heart sound present GI: Inspection: Yes normal to inspection Skin: General skin exam: no rashes or lesions noted Trauma: no lacerations or abrasions Wounds: no wounds Neuro: General: patient oriented x3 and moves all extremities Cranial nerves: Yes CN's II-XII intact bilaterally and Yes Equal, round and reactive pupils present Cognition (Neuro): normal cognition Gait exam (Neuro): N ormal gait present Motor exam (neuro): 5/5 motor strength present throughout and Pronator motor function not present Coordination: [id number] test normal Pupils: Normal pupillary reactivity/response: bilateral Extrem: General: Yes normal to inspection Right upper extremity: normal to inspection Left upper extremity: normal to inspection Right lower extremity: normal to inspection Left lower extremity: normal to inspection NIH Stroke Scale Internal: Initial- Upon Arrival Level of Consciousness: Alert Level of Consciousness Questions: Answers both questions correctly Level of Consciousness Commands: Performs both tasks correctly Best Gaze: Normal Visual: No visual loss Facial Palsy: Normal Motor Arm (Right): No drift Motor Arm (Left): No drift Motor Leg (Right): No drift Motor Leg (Left): No drift Limb Ataxia: Absent Sensory: Normal Best Language: No aphasia Dysarthia: Normal Extinction and Inattention: No abnormality Score: 0 Medical Decision Making Medical Decision Making [facility] Narrative: This is a 59-year-old Kiswahili-speaking female, with a history of asthma and GERD, who presents emergency department with concerns of headache and dizziness status post mechanical fall which occurred approximately 1 week ago. On arrival, patient is alert and oriented, she is neurologically intact with no focal deficits. She has had intermittent dizziness, she is not currently dizzy. She is well-appearing. Differential diagnoses include postconcussive symptoms, concussion, ICH, arrhythmia, electrolyte derangement. Given fall with head strike, will obtain CT head and CT neck to rule out any acute injury from the fall 1 week ago. We will also obtain labs, EKG. Patient has no cerebellar deficits, ambulatory with steady gait, reporting no current dizziness with rest. No vision changes. She has an NIH score of 0. 6:15 PM 05/28/2025 (Lanette Raygoza PA-C): Labs returned, patient has slight leukocytosis at 12.5, likely reactive, she does have a normocytic anemia with an H&H of 11 and 33, similar to previous. Chemistry revealing no evidence of BIPIN, negative troponin, no need for repeat given no acute changes on EKG. CT head and neck revealed no acute findings. Awaiting orthostatic vital signs. Pt not orthostatic. She is well appearing, ambulatory with steady gait. Overall workup reassuring. Symptoms likely post concussive in nature. She was given return precautions. Pt stable for d.c. Differential Diagnosis Differential Diagnoses: The differential diagnosis associated with the presentation includes See above Lab Data [facility] Lab Attestation statement: I reviewed the patient's lab results. See [facility] 05/28/25 17:22 05/28/25 17:22 Labs: Lab Results 05/28/25 Range/Units 17:22 WBC 12.5 H (4.8-10.8) X10*3/uL RBC 3.90 L (4.20-5.50) X10*6/uL Hgb 11.0 L (12.0-16.0) g/dl Hct 33.1 L (37.0-47.0) % MCV 84.9 (80.0-98.0) fL MCH 28.2 (27.0-33.0) pg MCHC 33.2 (31.0-35.0) g/dl RDW 13.5 (11.0-16.0) % Plt Count 325 (160-400) X10*3/uL MPV 9.8 (9.4-12.3) fL Immature Gran % (Auto) 0.3 (0.0-0.4) % Neut % (Auto) 56.9 (45-73) % Lymph % (Auto) 32.1 (20-40) % [place] % (Auto) 6.5 (2-11) % Eos % (Auto) 3.2 (0-4) % Baso % (Auto) 1.0 (0-2) % Lymph # (Auto) 4.0 (1.2-4.9) X10*3/uL [place] # (Auto) 0.8 (0.1-1.2) X10*3/uL Eos # (Auto) 0.4 (0.0-0.4) X10*3/uL Baso # (Auto) 0.1 (0.0-0.2) X10*3/uL Abs Immat Gran (auto) 0.04 H (0.00-0.03) X10*3/uL Absolute Neuts (auto) 7.1 (2.0-8.3) x10*3/uL Absolute Nucleated RBC 0.000 (0.0-0.012) X10*3/uL Nucleated RBC % (auto) 0.0 (0.0-0.2) /100WBC Sodium 140 (135-145) mmol/L Potassium 3.4 (3.3-5.1) mmol/L Chloride 105 (96-108) mmol/L Carbon Dioxide 28 (22-29) mmol/L Anion Gap 10 L (12-20) BUN 5 L (9-16) mg/dL Creatinine 0.65 (0.5-1.4) mg/dL Estim Creat Clear Calc 88.3 Estimated GFR > 60 Random Glucose 105 (60-115) mg/dL Calcium 9.3 (8.4-10.2) mg/dL Magnesium 1.9 (1.6-2.6) mg/dL Total Bilirubin 0.4 (0.0-1.0) mg/dL Direct Bilirubin 0.2 (0.0-0.5) mg/dL AST 28 (5-31) U/L ALT 24 (0-31) U/L Alkaline Phosphatase 74 (39-117) U/L Troponin I High Sens 3.3 (<3.5-17.0) ng/L Total Protein 7.2 (6.5-8.0) g/dL Albumin 4.1 (3.5-5.0) g/dL Independent Interpretation I performed an independent interpretation of an: EKG Interpretation: EKG normal sinus rhythm at a ventricular rate of 70 beats per minute, WY interval 154, there is an incomplete right bundle-branch block. No STEMI. Similar-appearing EKG from previous. Radiology Impression Discussion of test interpretation with radiology: I have reviewed the radiologist's reading. Radiologist Impression: FINDINGS: Brain: There is no acute intra-axial, extra-axial bleed, masses or midline shift. There is no acute infarction evolution. There is no edema. The agarwal to white matter differentiation is maintained normal. The lateral ventricles are symmetrical in size and configuration without enlargement. There is pericallosal calcification adjacent to splenium likely vascular unchanged to previous CT brain 01/31/2025 Bone windows reveal no calvarial abnormality. There is no scalp soft tissue normality. There is minimal mucosal thickening bilateral maxillary sinuses. Otherwise rest of the paranasal sinuses and mastoid air cells are well-aerated Cervical spine: An sagittal reconstructed images there is reversal of cervical lordosis. The vertebral heights and alignment is normal. There is loss of C5-C6, C6-7 and C7-T1 disc heights with moderate ventral spondylosis at C4-5 through C6/7 disc level. The craniovertebral junction and the C1-C2 alignment is normal. No visible acute fracture, dislocation or subluxation seen. The prevertebral and paravertebral soft tissues are normal. The airways widely patent. There is mild bilateral narrowing of C5-C6, C6-C 7 neural foramina from uncovertebral hypertrophic changes. Lung apices are clear. CT/CT head/brain wo IV con IMPRESSION: No acute intracranial process seen. Reversal of cervical lordosis with degenerative disc changes. No visible acute fracture, dislocation or subluxation seen. Electronically signed by: Javy Hanks MD 05/28/2025 04:26 PM EST RP Dictated By: Javy Hanks MD FINDINGS: Brain: There is no acute intra-axial, extra-axial bleed, masses or midline shift. There is no acute infarction evolution. There is no edema. The agarwal to white matter differentiation is maintained normal. The lateral ventricles are symmetrical in size and configuration without enlargement. There is pericallosal calcification adjacent to splenium likely vascular unchanged to previous CT brain 01/31/2025 Bone windows reveal no calvarial abnormality. There is no scalp soft tissue normality. There is minimal mucosal thickening bilateral maxillary sinuses. Otherwise rest of the paranasal sinuses and mastoid air cells are well-aerated Cervical spine: An sagittal reconstructed images there is reversal of cervical lordosis. The vertebral heights and alignment is normal. There is loss of C5-C6, C6-7 and C7-T1 disc heights with moderate ventral spondylosis at C4-5 through C6/7 disc level. The craniovertebral junction and the C1-C2 alignment is normal. No visible acute fracture, dislocation or subluxation seen. The prevertebral and paravertebral soft tissues are normal. The airways widely patent. There is mild bilateral narrowing of C5-C6, C6-C 7 neural foramina from uncovertebral hypertrophic changes. Lung apices are clear. CT/CT cervical spine wo IV con IMPRESSION: No acute intracranial process seen. Reversal of cervical lordosis with degenerative disc changes. No visible acute fracture, dislocation or subluxation seen. Electronically signed by: Javy Hanks MD 05/28/2025 04:26 PM EST RP Dictated By: Javy Hanks MD Discharge Plan Discharge Clinical Impression: Closed head injury Patient Disposition: Home, Self-Care Instructions: Head Injury (ED) Additional Instructions: You were seen in the emergency department due to dizziness after hitting your head. Your head CT and neck CT do not show any injuries from the fall. Your blood work was reassuring. Please drink plenty of fluids get plenty of rest. If any new or worsening symptoms occur including but not limited to severe chest pain, shortness for breath, severe headache, changes in vision, please seek emergent care. Please follow-up with your primary care physician. Prescriptions: No Action bismuth subsalicylate 262 mg tablet,chewable 2 tab PO QID 14 Days Qty: 112 0RF metronidazole 500 mg tablet 500 mg PO TID 14 Days Qty: 42 0RF pantoprazole 40 mg tablet,delayed release (DR/EC) 40 mg PO BID 14 Days Qty: 28 0RF Citrucel 500 mg tablet 500 mg PO DAILY Qty: 30 2RF Rx Instructions: one capsule with full glass of water benztropine 0.5 mg tablet 1 tab PO BEDTIME ibuprofen 800 mg tablet 1 tab PO TID PRN (Reason: pain) pantoprazole 40 mg tablet,delayed release (DR/EC) 1 tab PO DAILY cyanocobalamin (vitamin B-12) 1,000 mcg/mL solution 1 ml IM QMONTH mirtazapine 30 mg tablet 1 tab PO BEDTIME fluticasone propionate 50 mcg/actuation spray,suspension 1 - 2 spray intranasal DAILY PRN (Reason: Nasal Congestion) loratadine 10 mg tablet 1 tab PO DAILY PRN (Reason: allergies) duloxetine [Cymbalta] 30 mg capsule,delayed release(DR/EC) 1 cap PO QAM prednisone 20 mg tablet 40 mg PO DAILY Qty: 10 0RF doxycycline hyclate 100 mg tablet 100 mg PO BID Qty: 20 0RF azithromycin [Zithromax] 250 mg tablet 250 mg PO DAILY 4 Days Qty: 4 0RF Rx Instructions: start on day 2 of therapy ibuprofen 600 mg tablet 600 mg PO Q6H PRN (Reason: pain) Qty: 30 0RF methocarbamol 750 mg tablet 1,500 mg PO Q8H PRN (Reason: pain, moderate) Qty: 24 0RF ketorolac 10 mg tablet 10 mg PO Q6H PRN (Reason: pain) Qty: 20 0RF Rx Instructions: maximum total duration of 5 days from all oral, intranasal, or parenteral formulations. The patient received an intramuscular dose of Toradol here in the emergency room cholecalciferol (vitamin D3) 25 mcg (1,000 unit) capsule 25 mcg PO DAILY ranitidine HCl 150 mg capsule PO fluoxetine 20 mg capsule 20 mg PO DAILY hydroxyzine HCl 25 mg tablet 25 mg PO BID PRN (Reason: Anxiety) meclizine 25 mg tablet 25 mg PO DAILY albuterol sulfate [Proventil HFA] 90 mcg/actuation HFA aerosol inhaler 2 puff inhalation Q6H PRN (Reason: Wheezing) bisacodyl [Dulcolax (bisacodyl)] 5 mg tablet,delayed release (DR/EC) 10 mg PO ONCE 1 Days Qty: 2 0RF Rx Instructions: take 2 tabs at noon the day before your colonoscopy Adult Probiotic 3 billion cell capsule 3,000 mmu cells PO DAILY Qty: 30 2RF Rx Instructions: administer with a meal sennosides [Natural Senna Laxative] 8.6 mg tablet 8.6 mg PO BEDTIME PRN (Reason: constipation) Qty: 30 3RF hydrocortisone [Anusol-HC] 2.5 % cream with perineal applicator 1 appl [place] BID-QID PRN (Reason: hemorrhoids) Qty: 30 2RF Interventions: ED Discharge Assessment Last Done: 05/28/25 19:01 Discharge Date/Time: 05/28/25 19:10 Print Language: Kiswahili
[2025-05-28 17:29] LABS: MANUAL DIFF FLAG NO
[2025-05-28 17:31] LABS: Hematocrit 33.1 % (37.0-47.0); Hemoglobin 11.0 g/dl (12.0-16.0); Imm Gran Abs Auto 0.04 X10*3/uL (0.00-0.03); Imm Gran Pct Auto 0.3 % (0.0-0.4); Lymphocytes Absolute Auto 4.0 X10*3/uL (1.2-4.9); Mean Corpuscular HGB Conc 33.2 g/dl (31.0-35.0); Mean Corpuscular Hemoglobin 28.2 pg (27.0-33.0); Mean Corpuscular Volume 84.9 fL (80.0-98.0); NRBC Abs Auto 0.000 X10*3/uL (0.0-0.012); NRBC Pct Auto 0.0 /100WBC (0.0-0.2); Platelet Count 325 X10*3/uL (160-400); Red Blood Count 3.90 X10*6/uL (4.20-5.50); White Blood Count 12.5 X10*3/uL (4.8-10.8)
[2025-05-28 17:44] LABS: Alanine Aminotransferase 24 U/L (0-31); Albumin Level 4.1 g/dL (3.5-5.0); Alkaline Phosphatase 74 U/L (39-117); Anion Gap 10 (12-20); Aspartate Amino Transferase 28 U/L (5-31); Blood Urea Nitrogen 5 mg/dL (9-16); Calcium 9.3 mg/dL (8.4-10.2); Carbon Dioxide 28 mmol/L (22-29); Chloride 105 mmol/L (96-108); Creatinine Clr Calc Pharmacy 88.3; Estimated Glomerular Filt Rate > 60; Magnesium 1.9 mg/dL (1.6-2.6); Potassium 3.4 mmol/L (3.3-5.1); Sodium 140 mmol/L (135-145); Total Protein 7.2 g/dL (6.5-8.0)
[2025-05-28 17:52] LABS: Troponin-I High Sensitivity 3.3 ng/L (<3.5-17.0)
[2025-05-28 18:38] VITALS: BP 117/76; BP 124/85; PULSE 86; PULSE 87
[2025-05-28 18:39] VITALS: BP 148/91; PULSE 91
[2025-05-28 18:53] VITALS: BP 139/88; PULSE 83; RESP 16; TEMP 36.5; O2SAT 96
[2025-05-28 19:01] VITALS: BP 139/88; PULSE 83; RESP 16; TEMP 36.5; O2SAT 96
== END 2025-05-28 19:10 | disposition home or self-care (01) ==
PROVIDERS: Physician Assistant Medical; Emergency Provider Emergency Medicine; PCP Nurse Practitioner Pediatrics
DX: S09.90XA Unspecified injury of head, initial encounter (principal); W11.XXXA Fall on and from ladder, initial encounter; Y93.9 Activity, unspecified; Y92.009 Unspecified place in unspecified non-institutional (private) residence as the place of occurrence of the external cause; I45.10 Unspecified right bundle-branch block; J45.909 Unspecified asthma, uncomplicated; K21.9 Gastro-esophageal reflux disease without esophagitis; R51.9 Headache, unspecified
CPT/HCPCS: 36415; 70450; 72125; 80048; 80076; 83735; 84484; 85025; 93005; 99283; 99284

== ENCOUNTER → 2025-05-28 15:35 | Outpatient (BNV) | payer OTHER, SELFPAY | PROVIDERS: Emergency Provider Emergency Medicine; PCP Nurse Practitioner Pediatrics; Visit Provider Radiology Diagnostic Radiology | DX: R42 Dizziness and giddiness (principal); Z04.3 Encounter for examination and observation following other accident | CPT/HCPCS: 70450; 72125 ==

== ENCOUNTER → 2025-05-28 16:27 | Outpatient (BNV) | payer OTHER, SELFPAY | PROVIDERS: Emergency Provider Emergency Medicine; PCP Nurse Practitioner Pediatrics; Visit Provider Internal Medicine Cardiovascular Disease | DX: I45.10 Unspecified right bundle-branch block (principal) | CPT/HCPCS: 93010 ==